=== PATIENT | female | born 1950 | race Caucasian/White ===

== ENCOUNTER 2017-06-16 19:59 | Emergency (ER) | payer MEDICARE, BC ==
--- NOTE | 2017-06-16 20:02 | EDM.PDOC ---
ED HPI GENERAL MEDICAL PROBLEM - General Chief Complaint: General Stated Complaint: LEFT HIP PAIN Time Seen by Provider: 06/16/17 20:02 Source of Information: Reports: Patient, EMS. Denies: Old Records ([facility] chart/EMR) History Limitations: Reports: No Limitations - History of Present Illness INITIAL COMMENTS - FREE TEXT/NARRATIVE: The patient was brought to the emergency room via ambulance with basic transport secondary to severe 7/10 sharp sudden onset left hip pain, which occurred at home at about 19:15 hours today. She was just discharged from [facility] earlier today after a left hip TEP in that facility yesterday. The patient was attempting to walk into the bathroom with her walker when her foot caught in the doorway, and she heard a severe crack, however no history of fall or other significant injury/complaints. The first responders did give her own dose of 5 mg of oxycodone at 19:30 hours on their arrival with patient usually taking Benadryl along with this medication secondary to nonspecific reaction from morphine during recent hospitalization. Her last Benadryl dose was at 16:30 hours this afternoon. Note that the patient was placed on low-dose Xarelto at discharge secondary to her hip surgery despite some postoperative anemia and also her previous history of significant bleeding with surgeries. The patient denies any chest pain/pressure, heart flutter, dizziness, orthostasis, orthopnea, diaphoresis, paresthesias, recent decreased exercise tolerance, or any other anginal-type symptoms. No recent history of abdominal pain, heartburn, nausea, diarrhea, melena, gross hematochezia, or any food intolerance, including fatty foods, etc.. The patient also denies any recent fever, cough, wheezing, dyspnea, etc.. Onset: Today, Sudden Onset Date: 06/16/17 Onset Time: 19:15 Duration: Constant Location: Reports: Lower Extremity, Left. 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: Reports: Other Medication(s) (As above), Other (see below) ( Immobilization) Left Hip Pain Score (Numeric/FACES): 7 - Related Data Allergies Allergy/AdvReac Type Severity Reaction Status Date / Time azithromycin [From Zithromax] Allergy Anaphylactic Verified 06/16/17 20:04 Shock celecoxib [From Celebrex] Allergy Anaphylactic Verified 06/16/17 20:04 Shock morphine Allergy Headache Verified 06/16/17 20:04 Past Medical History Cardiovascular History: Reports: High Cholesterol, Hypertension Gastrointestinal History: Reports: Cholelithiasis [employer]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 Only blood transfusion required with open cholecystectomy in the early - Past Surgical History GI Surgical History: Reports: Cholecystectomy, Other (See Below) Other GI Surgeries/Procedures: open cholecystectomy with significant postoperative bleed requiring transfusion in the early Female Surgical History: Reports: Hysterectomy, Other (See Below) Other Female Surgeries/Procedures: Hysterectomy in the secondary to fibroids Musculoskeletal Surgical History: Reports: Arthroscopic Knee, Hip Replacement, Other (See Below) Other Musculoskeletal Surgeries/Procedures:: Left hip TEP on 06/15/17, right hip TEP on 04/19/16, right knee arthroscopic surgery in May 2017 - Past Imaging History Past Imaging History: Reports: MRI (MRI of the right shoulder on 07/08/16) Social & Family History - Tobacco Use Packs/Tins Daily: 1 (No use since 1972) Used Tobacco, but Quit: Yes Smoking Cessation Information Provided To Patient: No Second Hand Smoke Exposure: No Second Hand Smoke Education Provided: No - Alcohol Use Alcohol Use History: Yes Days Per Week of Alcohol Use: 3 (No previous DWIs, problems with alcohol abuse, etc.) Number of Drinks Per Day: 3 (Usually mixed drinks) Total Drinks Per Week: 9 Alcohol Use Frequency: Socially - Living Situation & Occupation Living situation: Reports: (1970, 3 children), with Family () 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 ED EXAM, GENERAL - Physical Exam Exam: See Below Exam Limited By: No Limitations General Appearance: Alert, WD/WN, Moderate Distress (Secondary to pain) Eye Exam: Bilateral Eye: EOMI, Normal Inspection (No nystagmus), PERRL Ears: Normal External Exam, Normal Canal, Hearing Grossly Normal, Normal TMs Nose: Normal Inspection, Normal Mucosa, No Blood Throat/Mouth: Normal Inspection, Normal Lips, Normal Teeth, Normal Gums, Normal Oropharynx, Normal Voice, No Airway Compromise. No: Dysphagia, Inflammation, Perioral Cyanosis Head: Atraumatic, Normocephalic. No: Facial Swelling, Facial Tenderness, Sinus Tenderness Neck: Normal Inspection, Supple, Non-Tender, Full Range of Motion. No: Carotid Bruit, Lymphadenopathy (L), Lymphadenopathy (R), Thyromegaly Respiratory/Chest: No Respiratory Distress, Lungs Clear, Normal Breath Sounds, No Accessory Muscle Use, Chest Non-Tender. No: Pleural Rub, Retractions Cardiovascular: Normal Peripheral Pulses, Regular Rate, Rhythm, No Edema, No Gallop, No JVD, No Murmur, No Rub. No: Gallop/S3, Gallop/S4, Friction Rub Peripheral Pulses: 4+: Radial (L), Radial (R), Dorsalis Pedis (L), Dorsalis Pedis (R) GI/Abdominal: Normal Bowel Sounds, Soft, Non-Tender, No Organomegaly, No Distention, No Abnormal Bruit, No Mass, Pelvis Stable, Other (Obese) (Female) Exam: Deferred Rectal (Female) Exam: Deferred Back Exam: Normal Inspection, Full Range of Motion. No: CVA Tenderness (L), CVA Tenderness (R), Muscle Spasm Extremities: No Pedal Edema, Normal Capillary Refill, Leg Pain (Severe leg pain with movement with outer rotation and leg shortening), Limited Range of Motion, Other (Postop dressing on left hip TEP site). No: Puja's Sign Neurological: Alert, Oriented, CN II-XII Intact, Normal Cognition, Normal Gait, Normal Reflexes (Negative Babinski's), No Motor/Sensory Deficits Psychiatric: Normal Affect, Normal Mood Skin Exam: Wound/Incision (Postoperative site dressing). No: Diaphoretic, Pallor Lymphatic: No Adenopathy Course - Vital Signs Last Recorded V/S: Last Vital Signs Temp 36.8 C 06/16/17 21:17 Pulse 76 06/16/17 21:47 Resp 20 06/16/17 21:47 BP 111/66 06/16/17 21:47 Pulse Ox 96 06/16/17 21:47 Vital Signs - 24 hr 06/16/17 06/16/17 06/16/17 21:07 21:17 21:18 Temperature [ 36.8 C Oral] Pulse, 78 75 Peripheral [ Pulse Oximetry] Respiratory 20 20 Rate Blood Pressure 132/70 111/54 L [Right Upper Arm] O2 Sat by Pulse 97 92 L Oximetry O2 Sat by Pulse 94 L Oximetry [ Nasal Cannula] 06/16/17 21:47 Temperature [ Oral] Pulse, 76 Peripheral [ Pulse Oximetry] Respiratory 20 Rate Blood Pressure 111/66 [Right Upper Arm] O2 Sat by Pulse 96 Oximetry O2 Sat by Pulse Oximetry [ Nasal Cannula] Note desaturation to 88% on room air prior to administration of O2 - Orders/Labs/Meds Orders: Active Orders 24 hr Category Date Time Status Cardiac Monitoring [RC] . DIRECTED Care 06/16/17 20:50 Active Oxygen Therapy, ED [RC] CONTINUOUS Care 06/16/17 21:07 Active Peripheral IV Care [RC] . DIRECTED Care 06/16/17 20:03 Active Pelvis 1V or 2V [CR] Stat Exams 06/16/17 20:02 Taken Sodium Chloride 0.9% [Saline Flush] Med 06/16/17 20:03 Active 10 ml FLUSH ASDIRECTED PRN Obtain Past Medical Record [OM.PC] Routine Oth 06/16/17 20:02 Active Peripheral IV Insertion Adult [OM.PC] Routine Oth 06/16/17 20:03 Ordered Medication Orders Sodium Chloride (Saline Flush) 10 ml FLUSH ASDIRECTED PRN PRN Reason: Keep Vein Open Last Admin: 06/16/17 20:38 Dose: 10 ml Labs: Laboratory Tests 06/16/17 06/16/17 06/16/17 Range/Units 21:05 21:05 21:05 WBC 12.8 H (4.0-10.2) K/uL RBC 2.99 L (3.77-5.09) M/uL Hgb 9.3 L (11.7-15.5) g/dL Hct 29.1 L (34.0-46.0) % MCV 97.3 (84.0-98.0) fL MCH 31.1 (28.2-33.3) pg MCHC 32.0 (31.7-36.0) g/dL RDW 14.4 H (11.2-14.1) % Plt Count 101 L (150-350) K/uL Neut % (Auto) 70.1 (45.0-80.0) % Lymph % (Auto) 14.3 (10.0-50.0) % Stoddard % (Auto) 13.8 (2.0-14.0) % Eos % (Auto) 1.6 (0.0-5.0) % Baso % (Auto) 0.2 (0.0-2.0) % Neut # (Auto) 8.93 H (1.40-7.00) K/uL Lymph # (Auto) 1.83 (0.50-3.50) K/uL Stoddard # (Auto) 1.76 H (0.00-1.00) K/uL Eos # (Auto) 0.21 (0.00-0.50) K/uL Baso # (Auto) 0.03 (0.00-0.20) K/uL PT (9.8-11.7) SEC INR APTT (23.5-30.0) SEC Sodium 139 (136-145) mmol/L Potassium 3.9 (3.5-5.1) mmol/L Chloride 107 (98-107) mmol/L Carbon Dioxide 26.1 (21.0-32.0) mmol/L BUN 17 (7-18) mg/dL Creatinine 0.81 (0.51-1.17) mg/dL Est Cr Clr Drug Dosing TNP Estimated GFR (MDRD) > 60 mL/min Glucose 125 H (74-106) mg/dL Lactic Acid 2.4 H (0.4-2.0) mmol/L Calcium 9.0 (8.5-10.1) mg/dL Total Bilirubin 0.1 L (0.2-1.0) mg/dL AST 41 H (15-37) U/L ALT 20 (12-78) U/L Alkaline Phosphatase 71 (46-116) IU/L Total Protein 6.4 (6.4-8.2) g/dL Albumin 3.3 L (3.4-5.0) g/dL 06/16/17 Range/Units 21:15 WBC (4.0-10.2) K/uL RBC (3.77-5.09) M/uL Hgb (11.7-15.5) g/dL Hct (34.0-46.0) % MCV (84.0-98.0) fL MCH (28.2-33.3) pg MCHC (31.7-36.0) g/dL RDW (11.2-14.1) % Plt Count (150-350) K/uL Neut % (Auto) (45.0-80.0) % Lymph % (Auto) (10.0-50.0) % Stoddard % (Auto) (2.0-14.0) % Eos % (Auto) (0.0-5.0) % Baso % (Auto) (0.0-2.0) % Neut # (Auto) (1.40-7.00) K/uL Lymph # (Auto) (0.50-3.50) K/uL Stoddard # (Auto) (0.00-1.00) K/uL Eos # (Auto) (0.00-0.50) K/uL Baso # (Auto) (0.00-0.20) K/uL PT 10.3 (9.8-11.7) SEC INR 1.0 APTT 17.2 L (23.5-30.0) SEC Sodium (136-145) mmol/L Potassium (3.5-5.1) mmol/L Chloride (98-107) mmol/L Carbon Dioxide (21.0-32.0) mmol/L BUN (7-18) mg/dL Creatinine (0.51-1.17) mg/dL Est Cr Clr Drug Dosing Estimated GFR (MDRD) mL/min Glucose (74-106) mg/dL Lactic Acid (0.4-2.0) mmol/L Calcium (8.5-10.1) mg/dL Total Bilirubin (0.2-1.0) mg/dL AST (15-37) U/L ALT (12-78) U/L Alkaline Phosphatase (46-116) IU/L Total Protein (6.4-8.2) g/dL Albumin (3.4-5.0) g/dL Meds: Medications Generic Name Dose Route Start Last Admin Trade Name Freq PRN Reason Stop Dose Admin Sodium Chloride 10 ml 06/16/17 20:03 06/16/17 20:38 Saline Flush FLUSH 10 ml ASDIRECTED PRN Administration Keep Vein Open Discontinued Medications Generic Name Dose Route Start Last Admin Trade Name Freq PRN Reason Stop Dose Admin Diazepam 2.5 mg 06/16/17 20:58 06/16/17 21:04 Valium IVPUSH 06/16/17 20:59 2.5 mg ONETIME ONE Administration Diphenhydramine HCl 25 mg 06/16/17 20:24 06/16/17 20:40 Benadryl IVPUSH 06/16/17 20:25 25 mg ONETIME ONE Administration Fentanyl 50 mcg 06/16/17 20:57 06/16/17 21:06 Sublimaze IVPUSH 06/16/17 20:58 50 mcg ONETIME ONE Administration Hydromorphone HCl 1 mg 06/16/17 20:03 06/16/17 20:15 Dilaudid IVPUSH 06/16/17 20:04 1 mg ONETIME ONE Administration Ondansetron HCl 4 mg 06/16/17 20:03 06/16/17 20:15 Zofran IVPUSH 06/16/17 20:04 4 mg ONETIME ONE Administration - Radiology Interpretation Free Text/Narrative:: X-rays of the pelvis, one view, shows evidence is status post bilateral hip TEP with evidence of new postoperative post hip TEP displaced fracture at the major trochanter, which is new from the postoperative films, which were requested from [facility]. alarm security or surveillance monitor shows normal sinus rhythm in the 70s with no ectopy or arrhythmia Departure - Departure Time of Disposition: 21:50 Disposition: DC/Tfer to Acute Hospital 02 Clinical Impression: Closed left hip fracture, Anemia, Osteoarthritis, Hypertension, Mixed anxiety depressive disorder, Hypoalbuminemia, LFT elevation, Leukocytosis, Lactic acid blood increased - Discharge Information Referrals: Aide Jenkins PA-C [Primary Care Provider] - Forms: ED Department Discharge, Interfacility Transfer EMTALA - Problem List & Annotations (1) Closed left hip fracture SNOMED Code(s): 508085341 Code(s): S72.002A - FRACTURE OF UNSP PART OF NECK OF LEFT FEMUR, INIT Status: Acute Priority: High Current Visit: Yes Onset Date: 06/16/17 Annotation/Comment:: Postoperative major trochanteric fracture as above. Telephone consultation at 20:[address] Santiago, orthopedic surgeon at [facility], who did review today's x-rays and agrees with my above findings. He does agree to accept physician for direct admission under hospitalist care with no further treatment recommendations given. Subsequent telephone consultation at 20:[address] Diggs, hospitalist at [facility], who does accept the patient for direct admission. Aggressive IV pain management as above with overall good results. IV Benadryl given secondary to previous nonspecific reaction in the past as above with no allergic reaction to today's medications. Ambulance transfer with health care consultant accompaniment. Note some mild hypoxia secondary to IV pain medications as above with good oxygenation after application of O2 2 L/m by nasal cannula. Qualifiers: Encounter type: initial encounter Qualified Code(s): S72.002A - Fracture of unspecified part of neck of left femur, initial encounter for closed fracture (2) Anemia SNOMED Code(s): 341331960 Code(s): D64.9 - ANEMIA, UNSPECIFIED Status: Acute Priority: High Current Visit: Yes Onset Date: ~06/16/17 Annotation/Comment:: Note current preoperative anemia and mild thrombocytopenia with history of severe postoperative bleeding in the past as above. Patient currently on Xarelto postoperatively as above. Continue to observe closely by accepting providers. Qualifiers: Anemia type: other cause Other causes of anemia: other cause, not classified Qualified Code(s): D64.89 - Other specified anemias (3) Hypertension SNOMED Code(s): 49995074 Code(s): I10 - ESSENTIAL (PRIMARY) HYPERTENSION Status: Chronic Priority : Medium Current Visit: Yes Annotation/Comment:: Blood pressures under good control in the emergency room despite pain Qualifiers: Hypertension type: essential hypertension Qualified Code(s): I10 - Essential (primary) hypertension (4) Hypoalbuminemia SNOMED Code(s): 260210732 Code(s): E88.09 - OTH DISORDERS OF PLASMA-PROTEIN METABOLISM, NEC Status: Acute Priority: Medium Current Visit: Yes Onset Date: 06/16/17 Annotation/Comment:: Mild hypoalbuminemia. Consider high-protein Glucerna supplements snacks (5) LFT elevation SNOMED Code(s): 675261056 Code(s): R79.89 - OTHER SPECIFIED ABNORMAL FINDINGS OF BLOOD CHEMISTRY Status: Chronic Priority: Medium Current Visit: Yes Annotation/Comment:: Mild LFTs elevation possibly postoperative. Observe for now (6) Leukocytosis SNOMED Code(s): 898079419, 668093164 Code(s): D72.829 - ELEVATED WHITE BLOOD CELL COUNT, UNSPECIFIED Status: Acute Priority: Medium Current Visit: Yes Onset Date: 06/16/17 Annotation/Comment:: Mild postoperative leukocytosis with no direct evidence of infection. No fever, etc. Observe for now Qualifiers: Leukocytosis type: bandemia Qualified Code(s): D72.825 - Bandemia (7) Mixed anxiety depressive disorder SNOMED Code(s): 061799817 Code(s): F41.8 - OTHER SPECIFIED ANXIETY DISORDERS Status: Chronic Priority: Medium Current Visit: Yes Annotation/Comment:: Stable by history (8) Osteoarthritis SNOMED Code(s): 805151221 Code(s): M19.90 - UNSPECIFIED OSTEOARTHRITIS, UNSPECIFIED SITE Status: Chronic Priority: Medium Current Visit: Yes Annotation/Comment:: Otherwise stable by history Qualifiers: Osteoarthritis location: multiple joints Osteoarthritis type: primary Qualified Code(s): M15.0 - Primary generalized (osteo)arthritis (9) Lactic acid blood increased SNOMED Code(s): 9998994 Code(s): R79.89 - OTHER SPECIFIED ABNORMAL FINDINGS OF BLOOD CHEMISTRY Status: Acute Priority: High Current Visit: Yes Onset Date: 06/16/17 Annotation/Comment:: Mild lactic acid elevation with no clinical evidence of sepsis. Consider repeat lactic acid level in 6 hours - Problem List Review Problem List Initiated/Reviewed/Updated: Yes - My Orders Last 24 Hours: My Active Orders 06/16/17 20:02 Pelvis 1V or 2V [CR] Stat Obtain Past Medical Record [OM.PC] Routine 06/16/17 20:03 Peripheral IV Care [RC] . DIRECTED Sodium Chloride 0.9% [Saline Flush] 10 ml FLUSH ASDIRECTED PRN Peripheral IV Insertion Adult [OM.PC] Routine 06/16/17 20:50 Cardiac Monitoring [RC] . DIRECTED 06/16/17 21:07 Oxygen Therapy, ED [RC] CONTINUOUS - Assessment/Plan Last 24 Hours: My Active Orders 06/16/17 20:02 Pelvis 1V or 2V [CR] Stat Obtain Past Medical Record [OM.PC] Routine 06/16/17 20:03 Peripheral IV Care [RC] . DIRECTED Sodium Chloride 0.9% [Saline Flush] 10 ml FLUSH ASDIRECTED PRN Peripheral IV Insertion Adult [OM.PC] Routine 06/16/17 20:50 Cardiac Monitoring [RC] . DIRECTED 06/16/17 21:07 Oxygen Therapy, ED [RC] CONTINUOUS Assessment:: As above Plan: As above. Extensive precautions were given to the patient and her , who are in agreement with the treatment plan. Ambulance transfer to [place] with health care consultant accompaniment Note secondary to taking care of the patient the nurse did not have time to enter her medications into the medication list with medications sent with the patient in the ambulance
[2017-06-16] MEDS ORDERED: Sodium Chloride 0.9% 10 ML Syringe FLUSH PRN (20:03)
[2017-06-16] MEDS ORDERED: Ondansetron 4 MG/2 ML SDV IVPUSH ONE (20:03)
[2017-06-16] MEDS ORDERED: HYDROmorphone 1 MG/ML Syringe IVPUSH ONE (20:03)
[2017-06-16] MEDS ORDERED: diphenhydrAMINE 50 MG/ML SDV IVPUSH ONE (20:24)
[2017-06-16] MEDS ORDERED: fentaNYL 100 MCG/2 ML SDV IVPUSH ONE (20:57)
[2017-06-16 21:19] LABS: CHLORIDE,CL 107 mmol/L (98-107); SODIUM,NA 139 mmol/L (136-145)
[2017-06-16 21:49] VITALS: BP 111/66
== END 2017-06-16 21:55 ==
LOC: LL.ED 19:59
DX: M97.02XA Periprosthetic fracture around internal prosthetic left hip joint, initial encounter (principal); D64.9 Anemia, unspecified; M19.90 Unspecified osteoarthritis, unspecified site; I10 Essential (primary) hypertension; F41.8 Other specified anxiety disorders; E88.09 Other disorders of plasma-protein metabolism, not elsewhere classified; R79.89 Other specified abnormal findings of blood chemistry; D72.829 Elevated white blood cell count, unspecified; E87.2 Acidosis; E78.00 Pure hypercholesterolemia, unspecified; Z90.49 Acquired absence of other specified parts of digestive tract; Z90.710 Acquired absence of both cervix and uterus; Z96.649 Presence of unspecified artificial hip joint; Z98.890 Other specified postprocedural states; Z88.1 Allergy status to other antibiotic agents; Z88.5 Allergy status to narcotic agent; Z88.8 Allergy status to other drugs, medicaments and biological substances; W18.40XA Slipping, tripping and stumbling without falling, unspecified, initial encounter
CPT/HCPCS: 36415; 72170; 80053; 83605; 85025; 85610; 85730; 96374; 96375; 99285; J1170; J1200; J2405; J3010; J3360; J7050

== ENCOUNTER 2017-06-27 10:09 | Inpatient (IN) | payer MEDICARE, BC ==
[2017-06-27] MEDS ORDERED: EXCEDRIN MIGRAINE PO PRN (16:12)
[2017-06-27] MEDS ORDERED: Cetirizine 10 MG Tab PO PRN (16:12)
[2017-06-27] MEDS: traMADol 50 MG Tab PO PRN (18:00)
[2017-06-27] MEDS: Calcium Carbonate/Vitamin D3 1500 MG-400 Units Tab PO SCH (18:04)
[2017-06-27] MEDS: Ferrous Sulfate 325 MG Tab PO SCH (18:04)
--- NOTE | 2017-06-27 19:38 | PCM.HP ---
H&P History of Present Illness - General Date of Service: 06/27/17 Admit Problem/Dx: Admission Diagnosis/Problem Admission Diagnosis/Problem Hip fracture requiring operative repair Source of Information: Patient, Family (), Old Records ([facility] EMR. No paper hospital chart available.), Other (Limited transfer records from [facility]) History Limitations: Reports: No Limitations - History of Present Illness Initial Comments - Free Text/Narative: The patient was brought to our facility via private automobile by her for direct admission into our swing bed for further strengthening, physical therapy, occupational therapy, etc. after recent status post revision of her left hip arthroplasty on 06/22/17 with recent postoperative fracture on 06/16/17 of her left hip TEP secondary to a fall in the home. The patient was evaluated in our emergency room by me on that day with transfer to [facility] for further orthopedic consultation, treatment, etc. She did have some complications of a postoperative bleed after the surgery with 2 units of packed red blood cells apparently required by her history. The patient denies any chest pain/pressure, heart flutter, dizziness, orthostasis, orthopnea, diaphoresis, paresthesias, recent decreased exercise tolerance, or any other anginal-type symptoms. No recent history of abdominal pain, heartburn, nausea, diarrhea, melena, gross hematochezia, or any food intolerance, including fatty foods, etc.. The patient also denies any recent fever, cough, wheezing, dyspnea , etc.. No other complications during the above hospitalization, although the patient is still having about 8/10 left hip pain despite significant narcotic therapy at this time. Onset of Symptoms: Reports: Sudden Symptom Onset Date: 06/16/17 Symptom Onset Time: 19:50 Duration of Symptoms: Reports: Intermittent, Improving (Since surgery) Location: Reports: Lower Extremity, Left (Left hip pain as above with additional occasional left knee pain with negative x-rays at [facility]). Denies: Head, Face, Neck, Chest, Abdomen, Back, Pelvis, Upper Extremity, Left, Upper Extremity, Right, Lower Extremity, Right, Radiates to Quality: Reports: Same as Previous Episode, Sharp, Stabbing, Throbbing Severity: Moderate Improves with: Reports: Rest Worsens with: Reports: Movement Context: Reports: Other (As above) Associated Symptoms: Reports: Weakness (Mild generalized). Denies: Confusion, Chest Pain, Cough, Diaphoresis, Fever/Chills, Headaches, Loss of Appetite, Malaise, Nausea/Vomiting, Shortness of Breath, Syncope Left Anterior Hip Pain Score (Numeric/FACES): 8 - Related Data Allergies/Adverse Reactions: Allergies Allergy/AdvReac Type Severity Reaction Status Date / Time apixaban [From Eliquis] Allergy Numbness Verified 06/27/17 15:16 azithromycin [From Zithromax] Allergy Swollen Verified 06/27/17 15:16 Eyes celecoxib [From Celebrex] Allergy Swollen Verified 06/27/17 15:16 Eyes morphine Allergy Headache Verified 06/27/17 15:16 oxycodone Allergy Itching Verified 06/27/17 15:16 metals Allergy Rash Uncoded 06/27/17 15:16 Home Medications: Home Meds Acetaminophen [Tylenol Arthritis] 650 mg PO Q8HR PRN 06/27/17 [History] Calcium Carbonate/Vitamin D3 [Calcium 500 + Vit D 400] 1 tab PO BID 06/27/17 [ History] Cetirizine HCl [Zyrtec] 10 mg PO DAILY PRN 06/27/17 [History] FLUoxetine [PROzac] 40 mg PO DAILY 06/27/17 [History] Ferrous Gluconate 324 mg PO BID 06/27/17 [History] Lactulose 30 ml PO BEDTIME 06/27/17 [History] Non-Formulary Medication [NF Drug] 3 tab PO BID PRN 06/27/17 [History] Nystatin 15 gm TP BID 06/27/17 [History] Omeprazole 20 mg PO DAILY 06/27/17 [History] Rivaroxaban [Xarelto] 10 mg PO DAILY 06/27/17 [History] Rosuvastatin Calcium 5 mg PO DAILY 06/27/17 [History] Sennosides/Docusate Sodium [Senna-S] 2 tab PO BID PRN 06/27/17 [History] Ubidecarenone [Co Q-10] 100 mg PO DAILY 06/27/17 [History] Zinc Sulfate 220 mg PO DAILY 06/27/17 [History] fentaNYL [Duragesic] 12 mcg TRDERM Q72H 06/27/17 [History] hydrOXYzine Pamoate [Hydroxyzine Pamoate] 50 mg PO Q6HR PRN 06/27/17 [History] oxyCODONE 5 mg PO Q4H PRN 06/27/17 [History] traMADol [Ultram] 100 tab PO Q6HR PRN 06/27/17 [History] Past Medical History HEENT History: Reports: Allergic Rhinitis. Denies: Cataract, Glaucoma, Hard of Hearing, Impaired Vision, Macular Degeneration, Retinal Detachment Cardiovascular History: Reports: High Cholesterol, Hypertension. Denies: Afib, Aneurysm, Arrhythmia, Blood Clots/VTE/DVT, CAD, Heart Murmur, NJ, Pacemaker, PVD , Syncope Respiratory History: Reports: None, Intubation, Previous. Denies: Asthma, Bronchitis, Recurrent, COPD, Intubation, Difficult, PE, Pneumothorax, Pulmonary Fibrosis, Sleep Apnea, TB Gastrointestinal History: Reports: Cholelithiasis, Chronic Constipation (With narcotic medications otherwise nonproblematic). Denies: Bowel Obstruction, Celiac Disease, Colon Polyp, Diverticulosis, Fecal Incontinence, Gastritis, GERD , GI Bleed, Hiatal Hernia, Inflammatory Bowel Disease, Irritable Bowel Syndrome , Jaundice, PUD Genitourinary History: Reports: None. Denies: Acute Renal Failure, Chronic Renal Insuffiency, Renal Calculus, Retention, Urinary, STD, Urinary Incontinence , UTI, Recurrent [employer] History: Reports: Dysfunctional Uterine Bleeding, Fibroids, . Denies: Endometriosis : 3 Para: 2 (All 3 deliveries full-term with initial with subsequent C- sections 2, no other complications during her pregnancies or deliveries ) LMP (Approximate): Menopausal (Surgical menopause as below) Musculoskeletal History: Reports: Arthritis, Back Pain, Chronic, Fracture, Fibromyalgia, Osteoarthritis, Other (See Below). Denies: Amputation, Gout, RA, SLE Other Musculoskeletal History: Postoperative left proximal femur fracture on 06/16 Neurological History: Reports: Migraines. Denies: Alzheimers Disease, Cerebral Aneurysms, Concussion, CVA, Head Trauma, MS, Neuropathy, Peripheral, Parkinson's , Seizure, TIA Psychiatric History: Reports: Anxiety, Depression. Denies: Abuse, Victim of, ADD, ADHD, Addiction, Dementia, Psych Hospitalization(s), Psychosis, PTSD, Suicide Attempt, Suicidal Ideation Endocrine/Metabolic History: Reports: None. Denies: Diabetes, Type I, Diabetes , Type II, Hypothyroidism, IDDM Hematologic History: Reports: Anemia, Blood Transfusion(s), Iron Deficiency, Other (See Below) Other Hematologic History: History of significant postoperative bleeding of unknown etiology from all of her surgeries with 2 units of packed red blood cells required after left hip revision on 06/22/17 with additional transfusion required after her open cholecystectomy in the early 1999s, no apparent previous workup Immunologic History: Reports: None. Denies: AIDS, HIV, SLE Oncologic (Cancer) History: Reports: None. Denies: Basal Cell Carcinoma, Breast , Cervix, Hodgkin's Lymphoma, Leukemia, Lymphoma, Malignant Melanoma, Non- Hodgkin's Lymphoma, Ovarian, Squamous Cell Carcinoma, Uterine Dermatologic History: Reports: Eczema. Denies: Psoriasis - Infectious Disease History Infectious Disease History: Reports: Chicken Pox. Denies: C-Difficile, Measles , Meningitis, Mononucleosis, MRSA, Mumps, Pertussis (Whooping Cough), Rheumatic Fever, Rubella, Scarlet Fever, Shingles, TB, VRE - Past Surgical History Head Surgeries/Procedures: Reports: None HEENT Surgical History: Reports: Oral Surgery, Other (See Below). Denies: Adenoidectomy, Cataract Surgery, Eye Surgery, Laser Surgery, LASIK, Myringotomy w Tube(s), Naso-Sinus Surgery, Tonsillectomy Other HEENT Surgeries/Procedures: Multiple teeth extractions with complete upper dentures and multiple anterior lower implants Cardiovascular Surgical History: Reports: None. Denies: Pacer, Varicose Respiratory Surgical History: Reports: None. Denies: Thoracentesis GI Surgical History: Reports: Cholecystectomy, Colonoscopy, Other (See Below). Denies: Appendectomy, EGD, Hernia, Abdominal, Hernia, Inguinal, Hernia Repair/ Other, Polypectomy Other GI Surgeries/Procedures: Open cholecystectomy in the early 1999, last colonoscopy on 05/23/11 Female Surgical History: Reports: Section, Hysterectomy, Salpingo- Oophorectomy, Tubal Ligation, Other (See Below). Denies: D&C Other Female Surgeries/Procedures: C-sections 2 as above, bilateral tubal ligation in 1969, hysterectomy with one-sided salpingo-oophorectomy in the secondary to uterine fibroids and dysfunctional uterine bleeding Endocrine Surgical History: Reports: None. Denies: Thyroid Biopsy Neurological Surgical History: Reports: None. Denies: C-Spine, Discectomy, Laminectomy, Lumbar Spine, Spinal Fusion, Vertebroplasty Musculoskeletal Surgical History: Reports: Arthroscopic Knee, Hip Replacement, Other (See Below). Denies: Carpal Tunnel, Ganglion Cyst, Shoulder Surgery Other Musculoskeletal Surgeries/Procedures:: Left hip TEP on 06/15/17 with subsequent postoperative fracture and required revision of her arthroplasty including wire securing on 06/22/17, right hip On 04/15/17, right foot hammertoe arthrodesis and bunionectomy on 06/11/14, right-sided bunionectomy on 04/09/14, left foot digit #2 and 3 hammertoe surgery with additional hardware removal on , right arthroscopic knee surgery in May 2017, left knee arthroscopic medial meniscectomy and chondroplasty on 04/07/17 Oncologic Surgical History: Reports: None Dermatological Surgical History: Reports: None - Past Imaging History Past Imaging History: Reports: MRI (Right shoulder on 07/08/16) Social & Family History - Family History HEENT: Reports: None. Denies: Allergic Rhinitis, Glaucoma, Macular Degeneration Cardiac: Reports: CAD, Heart Failure, NJ, Stent, Other (See Below). Denies: Afib, Aneurysm, Arrhythmia, Blood Clots/VTE/DVT, Cardiomyopathy, Heart Murmur, High Cholesterol, Hypertension, Pacemaker, Syncope Other Cardiac Family History: Father with fatal NJ with possible additional CHF in his 80s with previous PTCA and stent 2 in his 70s Respiratory: Reports: None. Denies: Asthma, COPD, PE, Pneumothorax, Sleep Apnea GI: Reports: None. Denies: Celiac Disease, Cholelithiasis, Colon Polyps, GERD, GI bleed, Inflammatory Bowel Disease, Irritable Bowel Syndrome, PUD : Reports: None. Denies: Dialysis, Renal Calculus, Renal Disease/ Insufficiency OBGYN: Reports: None. Denies: Dysfunctional uterine bleeding, Endometriosis, Recurrent Spontaneous Musculoskeletal: Reports: None. Denies: Gout, RA, SLE Neurological: Reports: CVA, MS, Other (See Below). Denies: Alzheimers Disease, Cerebral Aneurysms, Dementia, Migraines, Parkinson's, Seizure, TIA Other Neurological Family History: mother, maternal maternal aunt 1 and maternal uncles 2 all with MS; maternal grandmother with fatal CVA in her 60s with paternal grandmother with fatal CVA in her early 50s Psychiatric: Reports: None. Denies: Abuse, Victim of, ADD, ADHD, Anxiety, Depression, Psych Hospitalization(s), PTSD, Suicide Attempt, Other (See Below) Endocrine/Metabolic: Reports: Diabetes, type II, IDDM, Other (See Below). Denies: Hypothyroidism Other Endocrine/Metabolic Family History: Father and maternal grandmother with IDDM Hematologic: Reports: None. Denies: Anemia, SLE Immunologic: Reports: None. Denies: AIDS, HIV, SLE Dermatologic: Reports: Eczema, Other (See Below) Other Dermatologic Family History: Father with eczema Oncologic: Reports: Lung, Metastatic, Other (See Below). Denies: Breast, Cervix , Colon, Hodgkin's Lymphoma, Leukemia, Non-Hodgkin's Lymphoma, Ovarian, Prostate , Skin, Uterine Other Oncologic Family History: Father with metastatic lung cancer with history of tobacco use - Tobacco Use Smoking Status *Q: Former Smoker Tobacco Use Within Last Twelve Months: No Years of Tobacco use: 17 Packs/Tins Daily: 3 (Ordered smoking at age 17 and quit at age 35) Used Tobacco, but Quit: Yes Month Tobacco Last Used: Last use on 11/14/74 Smoking Cessation Information Provided To Patient: No Second Hand Smoke Exposure: No Second Hand Smoke Education Provided: No - Caffeine Use Caffeine Use: Reports: Soda (2 sodas per week). Denies: Coffee, Energy Drinks, Tea - Alcohol Use Alcohol Use History: Yes Days Per Week of Alcohol Use: 3 (No previous DWIs, problems with alcohol abuse, etc.) Number of Drinks Per Day: 3 (Usually mixed drinks or beer) Total Drinks Per Week: 9 Alcohol Use in Last Twelve Months: Yes Alcohol Use Frequency: Socially - Recreational Drug Use Recreational Drug Use: No Drug Use in Last 12 Months: No Recreational Drug Type: Denies: Amphetamines (Speed), Benzodiazepines, Cocaine, Heroin, Inhalants (Glues, Solvents, Aerosols), LSD (Acid), Marijuana/Hashish, Methamphetamine - Living Situation & Occupation Living situation: Reports: ( in 1970 with 3 children), with Family () 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 Denies: Fever, Chills, Malaise, Weakness, Fatigue, Night Sweats, Diaphoresis, Decreased Appetite, Weight Loss, Weight Gain HEENT: Reports: No Symptoms. Denies: Ear Pain, Eye Pain, Headaches, Hearing Changes, Rhinitis, Sinus Congestion, Vertigo, Visual Changes Pulmonary: Reports: No Symptoms. Denies: Shortness of Breath, Wheezing, Pleuritic Chest Pain, Cough Cardiovascular: Reports: No Symptoms. Denies: Chest Pain, Palpitations, Dyspnea on Exertion, Orthopnea, Edema, Lightheadedness, Syncope, Claudication, Blood Pressure Problem Gastrointestinal: Reports: No Symptoms. Denies: Abdominal Pain, Anorexia, Black Stool, Bloody Stool, Constipation, Diarrhea, Decreased Appetite, Difficulty Swallowing, Distension, Flatus, Hematemesis, Hematochezia, Melena, Mucous in Stool, Nausea, Stool Incontinence, Vomiting Genitourinary: Reports: No Symptoms. Denies: Dysuria, Frequency, Burning, Pain , Urgency, Incontinence, Hematuria, Retention, Discharge, Flank Pain Musculoskeletal: Reports: Leg Pain (Left hip and knee as above), Joint Pain (As above). Denies: Neck Pain, Shoulder Pain, Arm Pain, Back Pain Skin: Reports: Bruising (Postoperative site of the left hip), Pruritis (With administration of oxycodone), Wound (As above). Denies: Diaphoresis, Rash, Erythema Psychiatric: Reports: Depression, Anxiety (Increased since repeat left hip surgery). Denies: Confusion, Agitation, Hallucinations, Suicidal Ideation, Homicidal Ideation, Hallucinations (Auditory), Hallucinations (Visual) Neurological: Reports: No Symptoms, Difficulty Walking (Secondary to recent hip surgery), Weakness (Generalized postoperative). Denies: Confusion, Dizziness, Numbness, Paresthesia, Seizure, Syncope, Tingling, Gait Disturbance Hematologic/Lymphatic: Reports: No Symptoms Immunologic: Reports: No Symptoms Exam - Exam Exam: See Below - Vital Signs Vital Signs: Last Vital Signs Temp 37.4 C 06/27/17 19:26 Pulse 89 06/27/17 19:26 Resp 16 06/27/17 19:26 BP 137/63 06/27/17 19:26 Pulse Ox 91 L 06/27/17 19:26 Weight: 80.601 kg - Exam Quality Assessment: DVT Prophylaxis. No: Supplemental Oxygen, Central Line/PICC , Urinary Catheter, Skin Breakdown, Restraints General: Alert, Oriented, Cooperative HEENT: Conjunctiva Clear, EACs Clear, EOMI, Hearing Intact, Mucosa Moist & [place] , Nares Patent, Normal Nasal Septum, Posterior Pharynx Clear, Pupils Equal, Pupils Reactive, TMs Clear, PERRLA Neck: Supple, Trachea Midline, +2 Carotid Pulse wo Bruit, Full Range of Motion. No: Lymphadenopathy, Carotid Bruit, JVD, Thyromegaly Lungs: Clear to Auscultation, Normal Respiratory Effort. No: Rub Cardiovascular: Regular Rate, Regular Rhythm, Normal S1, Normal S2. No: Systolic Murmur, Diastolic Murmur, Rubs, Gallop/S3, Gallop/S4 GI/Abdominal Exam: Normal Bowel Sounds, Soft, Non-Tender, No Organomegaly, No Distention, No Abnormal Bruit, No Mass, Pelvis Stable, Other (Obese) (Female) Exam: Deferred Rectal (Female) Exam: Deferred Back Exam: Normal Inspection, Full Range of Motion. No: CVA Tenderness (L), CVA Tenderness (R) Extremities: No Pedal Edema, Normal Capillary Refill, Limited Range of Motion ( Left hip secondary to recent surgery), Other (Left hip dressing with mild blister formation by nurse's history). No: Puja's Sign Peripheral Pulses: 2+: Radial (L), Radial (R), Dorsalis Pedis (L), Dorsalis Pedis (R) Skin: Warm, Dry, Wound (Postoperative site as above), Incision (As above) Neurological: Cranial Nerves Intact. No: Babinski Neuro Extensive - Mental Status: Alert, Oriented x3, Normal Cognition Psychiatric: Alert, Anxious (Moderate), Depressed (Mild with adequate eye contact). No: Agitated - Patient Data Result Diagrams: 06/28/17 07:15 06/28/17 07:15 Jonatan Results Last 24 hrs: Microbiology 06/28/17 09:40 Stool / Feces - Stool, Liquid Stool Occult Blood (JONATAN) - Final Negative Hemoccult Imaging Impressions Last 24 hrs: X-rays of the pelvis on one view, with additional one view of the proximal femur shows status post bilateral hip TEP including left hip recent wiring with stable previous proximal femur fracture *Q Meaningful Use (ADM) - VTE *Q VTE Criteria *Q: - Stroke *Q Stroke Criteria *Q: - AMI *Q AMI Criteria *Q: - Problem List (1) Fracture, proximal femur SNOMED Code(s): 715861579 ICD Code: S72.009A - FRACTURE OF UNSP PART OF NECK OF UNSP FEMUR, INIT Status: Acute Priority: High Current Visit: Yes Onset Date: 06/16/17 Problem Details: Recent postoperative proximal left femur fracture on 06/16 with required revision of her left hip on 06/22/17. Initiate physical therapy and occupational therapy with follow-up already scheduled at the orthopedic clinic at [facility] in [place]. Activity restrictions as per physical therapy and occupational therapy. Strict fall precautions. They recommended dressing changes only on a weekly basis. Note significant narcotic pain therapy at this time with patient to be changed from scheduled to when necessary oxycodone with extreme discretion with attempt to discontinue this medication and low-dose fentanyl patch GREG. Regularly scheduled Tylenol regimen to be initiated with additional Ultram therapy for breakthrough pain. Patient aware of my concerns of addiction from the above medications and is in agreement with this treatment plan Qualifiers: Encounter type: initial encounter Fracture type: closed Laterality: left Qualified Code(s): S72.002A - Fracture of unspecified part of neck of left femur, initial encounter for closed fracture (2) Osteoarthritis SNOMED Code(s): 922838025 ICD Code: M19.90 - UNSPECIFIED OSTEOARTHRITIS, UNSPECIFIED SITE Status: Chronic Priority: Medium Current Visit: Yes Problem Details: Other than recent left femur fracture and occasional left knee pain stable by history. Note negative recent left knee x-rays at [facility] prior to transfer to this facility. Qualifiers: Osteoarthritis location: multiple joints Osteoarthritis type: primary Qualified Code(s): M15.0 - Primary generalized (osteo)arthritis (3) Hypertension SNOMED Code(s): 04458882 ICD Code: I10 - ESSENTIAL (PRIMARY) HYPERTENSION Status: Chronic Priority : Medium Current Visit: Yes Problem Details: Stable by history. Continue to observe closely Qualifiers: Hypertension type: essential hypertension Qualified Code(s): I10 - Essential (primary) hypertension (4) Hyperlipidemia SNOMED Code(s): 18407065 ICD Code: E78.5 - HYPERLIPIDEMIA, UNSPECIFIED Status: Chronic Priority: Medium Current Visit: Yes Problem Details: Currently under therapy with repeat lipid panel by her regular provider after discharge Qualifiers: Hyperlipidemia type: unspecified Qualified Code(s): E78.5 - Hyperlipidemia , unspecified (5) Anemia SNOMED Code(s): 500883787 ICD Code: D64.9 - ANEMIA, UNSPECIFIED Status: Acute Priority: High Current Visit: Yes Onset Date: ~06/22/17 Problem Details: Postoperative anemia with repeat blood work in one week. Note recent requirement for blood transfusion. In addition, note significant history of frequent postoperative bleeding as above with no previous workup. Secondary to recent blood transfusion cannot perform workup at this time. Consider possible factor V, factor VII, etc. evaluations in about one month with additional iron studies at that time Qualifiers: Anemia type: iron deficiency Iron deficiency anemia type: other iron deficiency Qualified Code(s): D50.8 - Other iron deficiency anemias (6) Allergic rhinitis SNOMED Code(s): 74645230 ICD Code: J30.9 - ALLERGIC RHINITIS, UNSPECIFIED Status: Chronic Priority : Medium Current Visit: Yes Problem Details: Stable by history Qualifiers: Chronicity: chronic Allergic rhinitis trigger: pollen Allergic rhinitis seasonality: seasonal Qualified Code(s): J30.1 - Allergic rhinitis due to pollen (7) Mixed anxiety depressive disorder SNOMED Code(s): 992233909 ICD Code: F41.8 - OTHER SPECIFIED ANXIETY DISORDERS Status: Chronic Priority: Medium Current Visit: Yes Problem Details: Somewhat exacerbated with recent fracture, etc. Initiate low-dose Ativan, which should be also beneficial for patients pain control. Continue Prozac for now Problem List Initiated/Reviewed/Updated: Yes Orders Last 24hrs: Active Orders 24 hr Category Date Time Status Admission Status [Patient Status] [ADT] Routine ADT 06/27/17 12:30 Active Antiembolic Devices [RC] .Routine Care 06/27/17 15:59 Active Antiembolic Devices [RC] PER UNIT ROUTINE Care 06/27/17 15:59 Active Communication Order [RC] ROUTINE Care 06/27/17 16:15 Active Pulse Oximetry [RC] ASDIRECTED Care 06/27/17 15:55 Active Up With Assistance [RC] ASDIRECTED Care 06/27/17 15:57 Active VTE/DVT Education [RC] PER UNIT ROUTINE Care 06/27/17 15:59 Active Vaccines to be Administered [RC] PER UNIT ROUTINE Care 06/27/17 15:59 Active Vital Signs [RC] QSHIFT Care 06/27/17 15:57 Active OT Evaluation and Treatment [CONS] Routine Cons 06/27/17 15:56 Active PT Evaluation and Treatment [CONS] Routine Cons 06/27/17 15:55 Active Heart Healthy Diet [DIET] Diet 06/27/17 Lunch Active Pelvis 1V or 2V [CR] Routine Exams 06/28/17 05:11 Ordered CBC WITH AUTO DIFF [HEME] Routine Lab 06/28/17 05:11 Ordered COMPREHENSIVE METABOLIC PN,CMP [CHEM] Routine Lab 06/28/17 05:11 Ordered OCCULT BLOOD DIAGNOSTIC [OP] Stat Lab 06/27/17 15:54 Uncollected Calcium Carbonate/Vitamin D3 [Caltrate 600+D 1500 MG- Med 06/27/17 18:00 Active 400 Units] 1 tab PO BID Cetirizine [ZyrTEC] Med 06/27/17 16:12 Active 10 mg PO DAILY PRN Docusate Sodium/Sennosides [Senna Plus] Med 06/27/17 16:12 Active 2 tab PO BID PRN FLUoxetine [PROzac] Med 06/28/17 08:00 Active 40 mg PO DAILY Ferrous Sulfate Med 06/27/17 18:00 Active 325 mg PO BID Lactulose [Cephulac] Med 06/27/17 20:00 Active 20 gm PO BEDTIME Non-Formulary Medication [NF Drug] Med 06/27/17 16:12 Pending DOSE each PO BID PRN Omeprazole Med 06/28/17 08:00 Active 20 mg PO DAILY Rivaroxaban [Xarelto] Med 06/27/17 20:00 Active 10 mg PO BEDTIME Rosuvastatin [Crestor] Med 06/28/17 08:00 Active 5 mg PO DAILY Ubidecarenone [Coenzyme Q10] Med 06/28/17 08:00 Active 100 mg PO DAILY Zinc Gluconate [Zinc] Med 06/28/17 08:00 Active 200 mg PO DAILY fentaNYL [Duragesic] Med 06/29/17 08:00 Active 12 mcg TRDERM Q72H hydrOXYzine Pamoate [Vistaril] Med 06/27/17 16:12 Active 50 mg PO Q6HR PRN oxyCODONE Med 06/27/17 20:00 Active 5 mg PO Q4H traMADol [Ultram] Med 06/27/17 16:12 Active 100 mg PO Q6HR PRN Anti-Embolism Stockings AK [Antiembolic Hose] [OM.PC] Oth 06/27/17 15:53 Ordered Routine DVT/VTE Prophylaxis Reflex [OM.PC] Routine Oth 06/27/17 15:53 Ordered GM Immunization Reflex [OM.PC] Click To Edit Oth 06/27/17 15:54 Ordered Obtain Past Medical Record [OM.PC] Routine Oth 06/27/17 15:54 Active Resuscitation Status Routine Resus Stat 06/27/17 15:52 Ordered Medication Orders Calcium Carbonate (Caltrate 600+D 1500 Mg-400 Units) 1 tab PO BID [facility] Last Admin: 06/27/17 18:04 Dose: 1 tab Cetirizine HCl (Zyrtec) 10 mg PO DAILY PRN PRN Reason: Allergies Coenzyme Q10 (Coenzyme Q10) 100 mg PO DAILY [facility] Fentanyl (Duragesic) 12 mcg TRDERM Q72H [facility] Ferrous Sulfate (Ferrous Sulfate) 325 mg PO BID [facility] Last Admin: 06/27/17 18:04 Dose: 325 mg Fluoxetine HCl (Prozac) 40 mg PO DAILY [facility] [facility] Hydroxyzine Pamoate (Vistaril) 50 mg PO Q6HR PRN PRN Reason: Itching Lactulose (Cephulac) 20 gm PO BEDTIME [facility] Non-Formulary Medication (Nf Drug) each PO BID PRN PRN Reason: Headache Omeprazole (Omeprazole) 20 mg PO DAILY [facility] Oxycodone HCl (Oxycodone) 5 mg PO Q4H [facility] Rivaroxaban (Xarelto) 10 mg PO BEDTIME [facility] Rosuvastatin Calcium (Crestor) 5 mg PO DAILY [facility] Senna/Docusate Sodium (Senna Plus) 2 tab PO BID PRN PRN Reason: Constipation Tramadol HCl (Ultram) 100 mg PO Q6HR PRN PRN Reason: Pain Last Admin: 06/27/17 18:00 Dose: 100 mg Zinc Gluconate (Zinc) 200 mg PO DAILY [facility] Assessment/Plan Comment:: As above. Extensive precautions were given to the patient, who is in agreement with the treatment plan. Note that secondary to registration error a duplicate Account was created delaying completion of my admission H&P from yesterday until this point with physical exam, etc. actually performed on 06/27/17 at time of patient's admission.
[2017-06-27] MEDS ORDERED: oxyCODONE 5 MG Tab PO SCH (20:00)
[2017-06-27] MEDS: Lactulose Soln 10 GM/15 ML 30 ML UD Cup PO SCH (20:04)
[2017-06-27] MEDS: Rivaroxaban 10 MG Tab PO SCH (20:07)
[2017-06-27] MEDS: hydrOXYzine Pamoate 25 MG Cap PO PRN (20:07)
[2017-06-28] MEDS: oxyCODONE 5 MG Tab PO PRN ×2 (00:07→08:53)
[2017-06-28] MEDS: traMADol 50 MG Tab PO PRN ×2 (04:08→12:27)
[2017-06-28 08:04] LABS: CHLORIDE,CL 104 mmol/L (98-107); SODIUM,NA 139 mmol/L (136-145)
[2017-06-28] MEDS: Calcium Carbonate/Vitamin D3 1500 MG-400 Units Tab PO SCH ×2 (08:49→17:10)
[2017-06-28] MEDS: Ferrous Sulfate 325 MG Tab PO SCH ×2 (08:50→17:10)
[2017-06-28] MEDS: Rosuvastatin 10 MG Tab PO SCH (08:51)
[2017-06-28] MEDS: Omeprazole 20 MG Cap.CR PO SCH (08:52)
[2017-06-28] MEDS: FLUoxetine 20 MG Cap PO SCH (08:52)
[2017-06-28] MEDS: Zinc (Zinc Gluconate) 50 MG Tab PO SCH (08:53)
[2017-06-28] MEDS: hydrOXYzine Pamoate 25 MG Cap PO PRN (08:54)
[2017-06-28] MEDS: LORazepam 1 MG Tab PO SCH ×2 (14:03→19:16)
[2017-06-28] MEDS: Acetaminophen 325 MG Tab PO SCH ×2 (14:04→19:18)
[2017-06-28] MEDS: Lactulose Soln 10 GM/15 ML 30 ML UD Cup PO SCH ×2 (19:18→19:27)
[2017-06-28] MEDS: Rivaroxaban 10 MG Tab PO SCH (19:20)
[2017-06-29] MEDS: Acetaminophen 325 MG Tab PO SCH ×4 (02:35→19:57)
[2017-06-29] MEDS: traMADol 50 MG Tab PO PRN (02:36)
[2017-06-29] MEDS: LORazepam 1 MG Tab PO SCH ×3 (08:17→19:56)
[2017-06-29] MEDS: Ferrous Sulfate 325 MG Tab PO SCH ×2 (08:18→17:21)
[2017-06-29] MEDS: Calcium Carbonate/Vitamin D3 1500 MG-400 Units Tab PO SCH ×2 (08:18→17:21)
[2017-06-29] MEDS: FLUoxetine 20 MG Cap PO SCH (08:19)
[2017-06-29] MEDS: Omeprazole 20 MG Cap.CR PO SCH (08:19)
[2017-06-29] MEDS: Zinc (Zinc Gluconate) 50 MG Tab PO SCH (08:20)
[2017-06-29] MEDS: Rosuvastatin 10 MG Tab PO SCH (08:23)
[2017-06-29] MEDS: fentaNYL 12 MCG/HR Transdermal Patch TRDERM SCH (08:24)
[2017-06-29] MEDS ORDERED: Pneumococcal 13-Valent Conjugate Vaccine 0.5 ML Syringe IM ONE (12:00)
[2017-06-29] MEDS: Menthol/Methyl Salicylate 85 GM Tube TOP PRN (16:51)
[2017-06-29] MEDS: Rivaroxaban 10 MG Tab PO SCH (19:59)
[2017-06-29] MEDS: Lactulose Soln 10 GM/15 ML 30 ML UD Cup PO SCH (20:00)
[2017-06-30] MEDS: Acetaminophen 325 MG Tab PO SCH ×4 (02:12→19:34)
[2017-06-30] MEDS: Calcium Carbonate/Vitamin D3 1500 MG-400 Units Tab PO SCH ×2 (08:28→18:14)
[2017-06-30] MEDS: LORazepam 1 MG Tab PO SCH ×3 (08:28→19:33)
[2017-06-30] MEDS: Rosuvastatin 10 MG Tab PO SCH (08:29)
[2017-06-30] MEDS: Ferrous Sulfate 325 MG Tab PO SCH ×2 (08:30→18:14)
[2017-06-30] MEDS: Omeprazole 20 MG Cap.CR PO SCH (08:30)
[2017-06-30] MEDS: FLUoxetine 20 MG Cap PO SCH (08:30)
[2017-06-30] MEDS: Zinc (Zinc Gluconate) 50 MG Tab PO SCH (08:32)
[2017-06-30] MEDS: traMADol 50 MG Tab PO PRN (15:48)
[2017-06-30] MEDS: Menthol/Methyl Salicylate 85 GM Tube TOP PRN (15:49)
[2017-06-30] MEDS: Lactulose Soln 10 GM/15 ML 30 ML UD Cup PO SCH ×2 (19:36→21:18)
[2017-06-30] MEDS: Rivaroxaban 10 MG Tab PO SCH (19:36)
[2017-07-01] MEDS: Acetaminophen 325 MG Tab PO SCH ×4 (01:09→20:17)
[2017-07-01] MEDS: LORazepam 1 MG Tab PO SCH ×3 (08:30→20:16)
[2017-07-01] MEDS: Calcium Carbonate/Vitamin D3 1500 MG-400 Units Tab PO SCH ×2 (08:31→18:08)
[2017-07-01] MEDS: Ferrous Sulfate 325 MG Tab PO SCH ×2 (08:32→18:08)
[2017-07-01] MEDS: Rosuvastatin 10 MG Tab PO SCH (08:32)
[2017-07-01] MEDS: FLUoxetine 20 MG Cap PO SCH (08:33)
[2017-07-01] MEDS: Omeprazole 20 MG Cap.CR PO SCH (08:33)
[2017-07-01] MEDS: Zinc (Zinc Gluconate) 50 MG Tab PO SCH (08:34)
[2017-07-01] MEDS: Lactulose Soln 10 GM/15 ML 30 ML UD Cup PO SCH ×2 (20:16→20:21)
[2017-07-01] MEDS: Rivaroxaban 10 MG Tab PO SCH (20:18)
[2017-07-02] MEDS: Acetaminophen 325 MG Tab PO SCH ×4 (01:32→19:49)
[2017-07-02] MEDS: LORazepam 1 MG Tab PO SCH ×3 (07:38→19:49)
[2017-07-02] MEDS: Calcium Carbonate/Vitamin D3 1500 MG-400 Units Tab PO SCH ×2 (07:39→17:12)
[2017-07-02] MEDS: Rosuvastatin 10 MG Tab PO SCH (07:40)
[2017-07-02] MEDS: fentaNYL 12 MCG/HR Transdermal Patch TRDERM SCH (07:42)
[2017-07-02] MEDS: Ferrous Sulfate 325 MG Tab PO SCH ×2 (07:43→17:12)
[2017-07-02] MEDS: FLUoxetine 20 MG Cap PO SCH (07:44)
[2017-07-02] MEDS: Omeprazole 20 MG Cap.CR PO SCH (07:44)
[2017-07-02] MEDS: Zinc (Zinc Gluconate) 50 MG Tab PO SCH (07:45)
[2017-07-02] MEDS: Rivaroxaban 10 MG Tab PO SCH (19:49)
[2017-07-02] MEDS: Lactulose Soln 10 GM/15 ML 30 ML UD Cup PO SCH (19:50)
[2017-07-03] MEDS: traMADol 50 MG Tab PO PRN (00:16)
[2017-07-03] MEDS: Acetaminophen 325 MG Tab PO SCH ×4 (02:50→19:33)
[2017-07-03] MEDS: LORazepam 1 MG Tab PO SCH ×3 (07:41→19:32)
[2017-07-03] MEDS: Calcium Carbonate/Vitamin D3 1500 MG-400 Units Tab PO SCH ×2 (07:42→17:25)
[2017-07-03] MEDS: Rosuvastatin 10 MG Tab PO SCH (07:43)
[2017-07-03] MEDS: Ferrous Sulfate 325 MG Tab PO SCH ×2 (07:44→17:25)
[2017-07-03] MEDS: Omeprazole 20 MG Cap.CR PO SCH (07:44)
[2017-07-03] MEDS: FLUoxetine 20 MG Cap PO SCH (07:45)
[2017-07-03] MEDS: Zinc (Zinc Gluconate) 50 MG Tab PO SCH (07:46)
[2017-07-03] MEDS: Rivaroxaban 10 MG Tab PO SCH (19:32)
[2017-07-03] MEDS: Lactulose Soln 10 GM/15 ML 30 ML UD Cup PO SCH (19:33)
[2017-07-04] MEDS: Acetaminophen 325 MG Tab PO SCH ×4 (02:03→19:56)
[2017-07-04] MEDS: LORazepam 1 MG Tab PO SCH ×3 (08:11→19:55)
[2017-07-04] MEDS: Calcium Carbonate/Vitamin D3 1500 MG-400 Units Tab PO SCH ×2 (08:12→17:14)
[2017-07-04] MEDS: Rosuvastatin 10 MG Tab PO SCH (08:13)
[2017-07-04] MEDS: Ferrous Sulfate 325 MG Tab PO SCH ×2 (08:13→17:15)
[2017-07-04] MEDS: Omeprazole 20 MG Cap.CR PO SCH (08:14)
[2017-07-04] MEDS: FLUoxetine 20 MG Cap PO SCH (08:14)
[2017-07-04] MEDS: Zinc (Zinc Gluconate) 50 MG Tab PO SCH (08:16)
[2017-07-04] MEDS: Lactulose Soln 10 GM/15 ML 30 ML UD Cup PO SCH (19:55)
[2017-07-04] MEDS: Rivaroxaban 10 MG Tab PO SCH (19:57)
[2017-07-05] MEDS: Acetaminophen 325 MG Tab PO SCH ×4 (02:36→20:11)
[2017-07-05] MEDS: LORazepam 1 MG Tab PO SCH ×3 (07:35→20:10)
[2017-07-05] MEDS: Ferrous Sulfate 325 MG Tab PO SCH ×2 (07:37→20:10)
[2017-07-05] MEDS: Calcium Carbonate/Vitamin D3 1500 MG-400 Units Tab PO SCH ×2 (07:37→20:10)
[2017-07-05] MEDS: Rosuvastatin 10 MG Tab PO SCH (07:38)
[2017-07-05] MEDS: FLUoxetine 20 MG Cap PO SCH (07:39)
[2017-07-05] MEDS: Omeprazole 20 MG Cap.CR PO SCH (07:39)
[2017-07-05] MEDS: Zinc (Zinc Gluconate) 50 MG Tab PO SCH (07:40)
[2017-07-05] MEDS: fentaNYL 12 MCG/HR Transdermal Patch TRDERM SCH (07:44)
[2017-07-05 07:50] LABS: CHLORIDE,CL 107 mmol/L (98-107); SODIUM,NA 141 mmol/L (136-145)
--- NOTE | 2017-07-05 10:27 | PCM.SN ---
- Free Text/Narrative Note: Labs and Micro reviewed today. Meds adjusted, including reduction of pain meds, etc. Note negative hemoccults x 2 and negative stool for C. diff. Still occasional loose stools. Not using stool softeners or lactulose. Try change from Prilosec to Pepcid. Anemia better. Continue iron. Repeat labs in 1 week. Ortho appointment today.
[2017-07-05] MEDS: Cephalexin 250 MG Cap PO SCH (20:10)
[2017-07-05] MEDS: Rivaroxaban 10 MG Tab PO SCH (20:11)
[2017-07-06] MEDS: Acetaminophen 325 MG Tab PO SCH ×4 (01:19→20:10)
[2017-07-06] MEDS: LORazepam 1 MG Tab PO SCH ×3 (08:23→20:09)
[2017-07-06] MEDS: Calcium Carbonate/Vitamin D3 1500 MG-400 Units Tab PO SCH ×2 (08:24→18:27)
[2017-07-06] MEDS: Rosuvastatin 10 MG Tab PO SCH (08:24)
[2017-07-06] MEDS: Ferrous Sulfate 325 MG Tab PO SCH ×2 (08:25→18:27)
[2017-07-06] MEDS: FLUoxetine 20 MG Cap PO SCH (08:27)
[2017-07-06] MEDS: Zinc (Zinc Gluconate) 50 MG Tab PO SCH (08:29)
[2017-07-06] MEDS: Famotidine 20 MG Tab PO SCH (08:37)
[2017-07-06] MEDS: Cephalexin 250 MG Cap PO SCH ×3 (08:37→18:29)
[2017-07-06] MEDS: Rivaroxaban 10 MG Tab PO SCH (20:13)
[2017-07-07] MEDS: traMADol 50 MG Tab PO PRN (00:37)
[2017-07-07] MEDS: Acetaminophen 325 MG Tab PO SCH ×4 (01:23→19:10)
[2017-07-07] MEDS: FLUoxetine 20 MG Cap PO SCH (08:40)
[2017-07-07] MEDS: LORazepam 1 MG Tab PO SCH ×3 (08:40→19:09)
[2017-07-07] MEDS: Calcium Carbonate/Vitamin D3 1500 MG-400 Units Tab PO SCH ×2 (08:40→17:57)
[2017-07-07] MEDS: Cephalexin 250 MG Cap PO SCH ×2 (08:40→11:26)
[2017-07-07] MEDS: Ferrous Sulfate 325 MG Tab PO SCH ×2 (08:40→17:57)
[2017-07-07] MEDS: Rosuvastatin 10 MG Tab PO SCH (08:40)
[2017-07-07] MEDS: Famotidine 20 MG Tab PO SCH (08:40)
[2017-07-07] MEDS: Zinc (Zinc Gluconate) 50 MG Tab PO SCH (08:41)
[2017-07-07] MEDS: Sulfamethoxazole/Trimethoprim 800-160 MG Tab PO SCH (17:57)
[2017-07-07] MEDS: Rivaroxaban 10 MG Tab PO SCH (19:10)
[2017-07-08] MEDS: Acetaminophen 325 MG Tab PO SCH ×4 (02:14→20:27)
[2017-07-08] MEDS: Calcium Carbonate/Vitamin D3 1500 MG-400 Units Tab PO SCH ×2 (08:11→17:17)
[2017-07-08] MEDS: LORazepam 1 MG Tab PO SCH ×3 (08:11→20:27)
[2017-07-08] MEDS: Rosuvastatin 10 MG Tab PO SCH (08:13)
[2017-07-08] MEDS: Ferrous Sulfate 325 MG Tab PO SCH ×2 (08:14→17:18)
[2017-07-08] MEDS: FLUoxetine 20 MG Cap PO SCH (08:15)
[2017-07-08] MEDS: Famotidine 20 MG Tab PO SCH (08:15)
[2017-07-08] MEDS: Sulfamethoxazole/Trimethoprim 800-160 MG Tab PO SCH ×2 (08:16→17:18)
[2017-07-08] MEDS: Zinc (Zinc Gluconate) 50 MG Tab PO SCH (08:17)
[2017-07-08] MEDS: Rivaroxaban 10 MG Tab PO SCH (20:27)
[2017-07-09] MEDS: Acetaminophen 325 MG Tab PO SCH ×4 (02:04→20:14)
[2017-07-09] MEDS: Calcium Carbonate/Vitamin D3 1500 MG-400 Units Tab PO SCH ×2 (07:50→17:54)
[2017-07-09] MEDS: LORazepam 1 MG Tab PO SCH ×3 (07:50→13:56)
[2017-07-09] MEDS: Rosuvastatin 10 MG Tab PO SCH (07:51)
[2017-07-09] MEDS: Famotidine 20 MG Tab PO SCH (07:52)
[2017-07-09] MEDS: Ferrous Sulfate 325 MG Tab PO SCH ×2 (07:52→17:54)
[2017-07-09] MEDS: FLUoxetine 20 MG Cap PO SCH (07:53)
[2017-07-09] MEDS: Sulfamethoxazole/Trimethoprim 800-160 MG Tab PO SCH ×2 (07:53→17:54)
[2017-07-09] MEDS: Zinc (Zinc Gluconate) 50 MG Tab PO SCH (07:54)
[2017-07-09] MEDS ORDERED: LORazepam 1 MG Tab PO PRN (19:32)
[2017-07-09] MEDS: Rivaroxaban 10 MG Tab PO SCH (20:13)
[2017-07-09] MEDS: Ondansetron 4 MG Tab.DIS PO PRN (20:13)
[2017-07-10] MEDS: Ondansetron 4 MG Tab.DIS PO PRN ×2 (01:48→08:21)
[2017-07-10] MEDS: Acetaminophen 325 MG Tab PO SCH ×3 (03:59→14:42)
[2017-07-10] MEDS: Calcium Carbonate/Vitamin D3 1500 MG-400 Units Tab PO SCH ×2 (08:05→08:28)
[2017-07-10] MEDS: Rosuvastatin 10 MG Tab PO SCH ×2 (08:06→08:30)
[2017-07-10] MEDS: Ferrous Sulfate 325 MG Tab PO SCH (08:07)
[2017-07-10] MEDS: FLUoxetine 20 MG Cap PO SCH (08:08)
[2017-07-10] MEDS: Famotidine 20 MG Tab PO SCH (08:08)
[2017-07-10] MEDS: Sulfamethoxazole/Trimethoprim 800-160 MG Tab PO SCH (08:09)
[2017-07-10] MEDS: Zinc (Zinc Gluconate) 50 MG Tab PO SCH ×2 (08:10→08:30)
[2017-07-10 09:30] VITALS: BP 125/59
--- NOTE | 2017-07-10 10:51 | PCM.DCSUM1 ---
Discharge Summary - Discharge Data Discharge Date: 07/10/17 Discharge Disposition: DC/Tfer to Acute Hospital 02 Condition: Good - Discharge Diagnosis/Problem(s) (1) Infected prosthesis of left hip SNOMED Code(s): 880312276, [id number] ICD Code: T84.52XA - INFECT/INFLM REACTION DUE TO INTERNAL LEFT HIP PROSTH, INIT Status: Acute Priority: High Current Visit: Yes Problem Details: Patient noted to have increased redness and swelling around operative site of left hip overnight. Staph aureus noted when wound drainage cultured recently. Qualifiers: Qualified Code(s): T84.52XA - Infection and inflammatory reaction due to internal left hip prosthesis, initial encounter - Patient Summary/Data Complications: Changes suspicious for infection noted Consults: Consultations 06/27/17 15:55 PT Evaluation and Treatment [CONS] Routine 06/27/17 15:56 OT Evaluation and Treatment [CONS] Routine 07/04/17 11:02 Consult to Dietary [Consult to [employer] Operator] [CONS] Routine Hospital Course: Patient admitted on Swing Bed for rehab after hip replacement. Was doing well. Noted to have small amount drainage that was sent for culture. Today now has increased swelling and warmth/tenderness near operative site. Temp elevated to 100. Infection suspected. Call placed to [facility]. Transfer arranged with , Hospitalist as accepting MD. Orthopedics is aware patient will be returning. They requested that no additional antibiotics be given. - Discharge Plan Prescriptions/Med Rec: Sulfamethoxazole/Trimethoprim [Bactrim Ds Tablet] 1 each PO BID #20 tablet Home Medications: Home Meds Acetaminophen [Tylenol Arthritis] 650 mg PO Q8HR PRN 06/27/17 [History] Calcium Carbonate/Vitamin D3 [Calcium 500 + Vit D 400] 1 tab PO BID 06/27/17 [ History] Cetirizine HCl [Zyrtec] 10 mg PO DAILY PRN 06/27/17 [History] FLUoxetine [PROzac] 40 mg PO DAILY 06/27/17 [History] Ferrous Gluconate 324 mg PO BID 06/27/17 [History] Lactulose 30 ml PO BEDTIME 06/27/17 [History] Non-Formulary Medication [NF Drug] 3 tab PO BID PRN 06/27/17 [History] Nystatin 15 gm TP BID 06/27/17 [History] Omeprazole 20 mg PO DAILY 06/27/17 [History] Rivaroxaban [Xarelto] 10 mg PO DAILY 06/27/17 [History] Rosuvastatin Calcium 5 mg PO DAILY 06/27/17 [History] Sennosides/Docusate Sodium [Senna-S] 2 tab PO BID PRN 06/27/17 [History] Ubidecarenone [Co Q-10] 100 mg PO DAILY 06/27/17 [History] Zinc Sulfate 220 mg PO DAILY 06/27/17 [History] fentaNYL [Duragesic] 12 mcg TRDERM Q72H 06/27/17 [History] hydrOXYzine Pamoate [Hydroxyzine Pamoate] 50 mg PO Q6HR PRN 06/27/17 [History] oxyCODONE 5 mg PO Q4H PRN 06/27/17 [History] traMADol [Ultram] 100 tab PO Q6HR PRN 06/27/17 [History] Sulfamethoxazole/Trimethoprim [Bactrim Ds Tablet] 1 each PO BID #20 tablet 07/07 [Rx] Referrals: Aide Jenkins PA-C [Physician Paper Cutter Operator] - - Discharge Summary/Plan Comment DC Time >30 min.: Yes (Waiting for bed assignment from [facility]. ) Discharge Summary/Plan Comment: Patient will be taken by private vehicle directly to [facility] for treatment of suspected hip infection. - General Info Date of Service: 07/10/17 Admission Dx/Problem (Free Text: Admission Diagnosis/Problem Admission Diagnosis/Problem Hip fracture requiring operative repair Functional Status: Reports: Tolerating Diet, Urinating, New Symptoms (increased pain and swelling left hip) - Review of Systems General: Reports: Fever (low grade temp elevation), Malaise HEENT: Reports: No Symptoms Pulmonary: Reports: No Symptoms Cardiovascular: Reports: No Symptoms Gastrointestinal: Reports: No Symptoms Genitourinary: Reports: No Symptoms Musculoskeletal: Reports: Other (Does not report increased pain in actual left hip joint) Skin: Reports: Other (increased warmth and swelling near incision site left hip) Neurological: Reports: No Symptoms Psychiatric: Reports: No Symptoms - Patient Data Vitals - Most Recent: Last Vital Signs Temp 37.7 C 07/10/17 08:00 Pulse 75 07/10/17 08:00 Resp 16 07/10/17 08:00 BP 125/59 L 07/10/17 08:00 Pulse Ox 93 L 07/10/17 08:00 Weight - Most Recent: 80.331 kg I&O - Last 24 hours: Intake & Output 07/09/17 07/10/17 07/10/17 22:59 06:59 14:59 Intake Total 240 Balance 240 Med Orders - Current: Current Medications Acetaminophen (Tylenol) 650 mg PO Q6H [facility] Last Admin: 07/10/17 08:09 Dose: 650 mg Calcium Carbonate (Caltrate 600+D 1500 Mg-400 Units) 1 tab PO BID [facility] Last Admin: 07/10/17 08:28 Dose: Not Given Cetirizine HCl (Zyrtec) 10 mg PO DAILY PRN PRN Reason: Allergies Last Admin: 06/28/17 00:09 Dose: 10 mg Coenzyme Q10 (Coenzyme Q10) 100 mg PO DAILY [facility] Last Admin: 07/10/17 08:30 Dose: Not Given Famotidine (Pepcid) 20 mg PO DAILY [facility] Last Admin: 07/10/17 08:08 Dose: 20 mg Ferrous Sulfate (Ferrous Sulfate) 325 mg PO BID [facility] Last Admin: 07/10/17 08:07 Dose: 325 mg Fluoxetine HCl (Prozac) 40 mg PO DAILY [facility] Last Admin: 07/10/17 08:08 Dose: 40 mg Lorazepam (Ativan) 1 mg PO TID PRN PRN Reason: Anxiety Last Admin: 07/10/17 05:27 Dose: 1 mg Methyl Salicylate (Icy Hot Cream) 0 gm TOP ASDIRECTED PRN PRN Reason: Pain Last Admin: 06/30/17 15:49 Dose: 1 applic Ondansetron HCl (Zofran Odt) 4 mg PO Q6H PRN PRN Reason: Nausea/Vomiting Last Admin: 07/10/17 08:21 Dose: 4 mg Rivaroxaban (Xarelto) 10 mg PO BEDTIME [facility] Last Admin: 07/09/17 20:13 Dose: 10 mg Rosuvastatin Calcium (Crestor) 5 mg PO DAILY [facility] Last Admin: 07/10/17 08:30 Dose: Not Given Senna/Docusate Sodium (Senna Plus) 2 tab PO BID PRN PRN Reason: Constipation Tramadol HCl (Ultram) 100 mg PO Q6HR PRN PRN Reason: Pain (moderate 4-6) Last Admin: 07/07/17 00:37 Dose: 100 mg Trimethoprim/Sulfamethoxazole (Septra Ds) 1 tab PO BID [facility] Stop: 07/17/17 08:00 Last Admin: 07/10/17 08:09 Dose: 1 tab Zinc Gluconate (Zinc) 200 mg PO DAILY [facility] Last Admin: 07/10/17 08:30 Dose: Not Given Discontinued Medications Cephalexin (Keflex) 500 mg PO TID [facility] Stop: 07/12/17 12:00 Last Admin: 07/07/17 11:26 Dose: 500 mg Fentanyl (Duragesic) 12 mcg TRDERM Q72H [facility] Last Admin: 07/05/17 07:44 Dose: 12 mcg Hydroxyzine Pamoate (Vistaril) 50 mg PO Q6HR PRN PRN Reason: Itching Last Admin: 06/28/17 08:54 Dose: 50 mg Lactulose (Cephulac) 20 gm PO BEDTIME [facility] Last Admin: 07/04/17 19:55 Dose: Not Given Lorazepam (Ativan) 1 mg PO TID@0800,1400,2000 [facility] Last Admin: 07/09/17 13:56 Dose: Not Given Miscellaneous Information (Remove Patch) 1 ea TRDERM Q72H [facility] Last Admin: 07/05/17 07:44 Dose: 1 ea Excedrin Migraine 3 each PO BID PRN PRN Reason: Headache Omeprazole (Omeprazole) 20 mg PO DAILY [facility] Last Admin: 07/05/17 07:39 Dose: 20 mg Oxycodone HCl (Oxycodone) 5 mg PO Q4H [facility] Last Admin: 06/27/17 20:04 Dose: 5 mg Oxycodone HCl (Oxycodone) 5 mg PO Q4H PRN PRN Reason: Pain (severe 7-10) Last Admin: 06/28/17 08:53 Dose: 5 mg Pneumococcal 13-Valent Conj Vacc (Prevnar 13) 0.5 ml IM .ONCE ONE Stop: 06/29/17 12:01 Last Admin: 06/29/17 11:19 Dose: 0.5 ml - Exam Quality Assessment: Reports: DVT Prophylaxis General: Reports: Alert, Oriented, Cooperative, No Acute Distress HEENT: Reports: Pupils Equal, Pupils Reactive, EOMI, Mucous Membr. Moist/[place] Neck: Reports: Supple Lungs: Reports: Clear to Auscultation, Normal Respiratory Effort Cardiovascular: Reports: Regular Rate, Regular Rhythm GI/Abdominal Exam: Soft, Non-Tender Extremities: Other (left hip mildly swollen compared to right. Increased swelling/tenderness/warmth near incision of left hip area. Small area of drainage superiorly. ) Neurological: Reports: No New Focal Deficit Psy/Mental Status: Reports: Alert, Normal Affect, Normal Mood *Q Meaningful Use (DIS) - VTE *Q VTE Criteria *Q: - Stroke *Q Stroke Criteria *Q: - AMI *Q AMI Criteria *Q:
[2017-07-10] MEDS: traMADol 50 MG Tab PO PRN (11:28)
== END 2017-07-10 14:10 | DRG 559 ==
LOC: LL.SWG 13:15
PROVIDERS: ADMIT Family Medicine; ATTEND Family Medicine
PROC: 3E0234Z Introduction of Serum, Toxoid and Vaccine into Muscle, Percutaneous Approach (ICD-10-PCS; principal; 2017-06-29)
DX: Z47.89 Encounter for other orthopedic aftercare (principal); S72.009A Fracture of unspecified part of neck of unspecified femur, initial encounter for closed fracture; T84.52XA Infection and inflammatory reaction due to internal left hip prosthesis, initial encounter; R53.1 Weakness; Z88.1 Allergy status to other antibiotic agents; Z88.6 Allergy status to analgesic agent; Z88.8 Allergy status to other drugs, medicaments and biological substances; Z91.09 Other allergy status, other than to drugs and biological substances; Z79.899 Other long term (current) drug therapy; J30.9 Allergic rhinitis, unspecified; E78.00 Pure hypercholesterolemia, unspecified; I10 Essential (primary) hypertension; K59.09 Other constipation; M19.90 Unspecified osteoarthritis, unspecified site; G89.29 Other chronic pain; M54.9 Dorsalgia, unspecified; D64.9 Anemia, unspecified; Z96.649 Presence of unspecified artificial hip joint; Z87.891 Personal history of nicotine dependence; E78.5 Hyperlipidemia, unspecified; F41.8 Other specified anxiety disorders; Z23 Encounter for immunization
CPT/HCPCS: 36415; 72170; 80053; 82272; 85025; 85610; 85730; 87070; 87077; 87186; 87493; 90670; 97110-GO; 97110-GP; 97116-GP; 97161-GP; 97165-GO; 97530-GO; 97530-GP; 97535-GO; A9270-GY; G0009; Q0177

== ENCOUNTER 2017-07-15 15:48 | Inpatient (IN) | payer MEDICARE, BC ==
[2017-07-15] MEDS ORDERED: fentaNYL 12 MCG/HR Transdermal Patch TRDERM SCH (19:30)
[2017-07-15] MEDS ORDERED: oxyCODONE 5 MG Tab PO PRN (19:30)
[2017-07-15] MEDS ORDERED: hydrOXYzine Pamoate 25 MG Cap PO PRN (19:54)
[2017-07-15] MEDS: Ferrous Sulfate 325 MG Tab PO SCH (20:48)
[2017-07-15] MEDS: Rosuvastatin 10 MG Tab PO SCH ×2 (20:48→20:50)
[2017-07-15] MEDS: Calcium Carbonate/Vitamin D3 1500 MG-400 Units Tab PO SCH (20:48)
[2017-07-15] MEDS: Lactulose Soln 10 GM/15 ML 30 ML UD Cup PO SCH (20:48)
[2017-07-15] MEDS: Cephalexin 250 MG Cap PO SCH (20:49)
--- NOTE | 2017-07-15 21:30 | PCM.HP ---
H&P History of Present Illness - General Date of Service: 07/15/17 Admit Problem/Dx: Admission Diagnosis/Problem Admission Diagnosis/Problem Hip fracture requiring operative repair Source of Information: Patient History Limitations: Reports: No Limitations - History of Present Illness Initial Comments - Free Text/Narative: Patient re-admitted to [facility] after evaluation at [facility] to rule out hip infection s/p left hip arthroplasty. At this time, it appears that the swelling and pain was an inflammation reaction per patient and notes from [facility]. A significant amount of fluid was drained from the area using guided US. This fluid tested negative for infection. She continues to be treated with oral Keflex. No other changes were made. Generalized Pain Score (Numeric/FACES): 6 - Related Data Allergies/Adverse Reactions: Allergies Allergy/AdvReac Type Severity Reaction Status Date / Time apixaban [From Eliquis] Allergy Numbness Verified 07/15/17 16:06 azithromycin [From Zithromax] Allergy Swollen Verified 07/15/17 16:06 Eyes celecoxib [From Celebrex] Allergy Swollen Verified 07/15/17 16:06 Eyes morphine Allergy Headache Verified 07/15/17 16:06 oxycodone Allergy Itching Verified 07/15/17 16:06 metals Allergy Rash Uncoded 07/15/17 16:06 Home Medications: Home Meds Acetaminophen [Tylenol Arthritis] 650 mg PO Q8HR PRN 06/27/17 [History] Calcium Carbonate/Vitamin D3 [Calcium 500 + Vit D 400] 1 tab PO BID 06/27/17 [ History] Cetirizine HCl [Zyrtec] 10 mg PO DAILY PRN 06/27/17 [History] FLUoxetine [PROzac] 40 mg PO DAILY 06/27/17 [History] Ferrous Gluconate 324 mg PO BID 06/27/17 [History] Lactulose 30 ml PO BEDTIME 06/27/17 [History] Non-Formulary Medication [NF Drug] 3 tab PO BID PRN 06/27/17 [History] Nystatin 1 applic TP BID 06/27/17 [History] Omeprazole 20 mg PO DAILY 06/27/17 [History] Rivaroxaban [Xarelto] 10 mg PO DAILY 06/27/17 [History] Rosuvastatin Calcium 5 mg PO DAILY 06/27/17 [History] Sennosides/Docusate Sodium [Senna-S] 2 tab PO BID PRN 06/27/17 [History] Ubidecarenone [Co Q-10] 100 mg PO DAILY 06/27/17 [History] fentaNYL [Duragesic] 12 mcg TRDERM Q72H 06/27/17 [History] hydrOXYzine Pamoate [Hydroxyzine Pamoate] 50 mg PO Q6HR PRN 06/27/17 [History] oxyCODONE 5 mg PO Q4H PRN 06/27/17 [History] Cephalexin 500 mg PO QID 07/15/17 [History] Past Medical History HEENT History: Reports: Allergic Rhinitis. Denies: Cataract, Glaucoma, Hard of Hearing, Impaired Vision, Macular Degeneration, Retinal Detachment Other HEENT History: seasonal allergies Cardiovascular History: Reports: High Cholesterol, Hypertension Respiratory History: Reports: Intubation, Previous, None Gastrointestinal History: Reports: Cholelithiasis, Chronic Constipation (With narcotic medications otherwise nonproblematic). Denies: Bowel Obstruction, Celiac Disease, Colon Polyp, Diverticulosis, Fecal Incontinence, Gastritis, GERD , GI Bleed, Hiatal Hernia, Inflammatory Bowel Disease, Irritable Bowel Syndrome , Jaundice, PUD Genitourinary History: Reports: None. Denies: Acute Renal Failure, Chronic Renal Insuffiency, Renal Calculus, Retention, Urinary, STD, Urinary Incontinence , UTI, Recurrent [employer] History: Reports: Dysfunctional Uterine Bleeding, Fibroids, Musculoskeletal History: Reports: Arthritis, Back Pain, Chronic, Fibromyalgia, Fracture, Other (See Below), Osteoarthritis Other Musculoskeletal History: Postoperative left proximal femur fracture on 06/16 Neurological History: Reports: Migraines Psychiatric History: Reports: Anxiety, Depression Endocrine/Metabolic History: Reports: None Hematologic History: Reports: Anemia, Blood Transfusion(s), Iron Deficiency, Other (See Below) Other Hematologic History: History of significant postoperative bleeding with all previous surgeries of unknown etiology with no known specific previous workup. Only blood transfusion required with open cholecystectomy in the early Immunologic History: Reports: None Oncologic (Cancer) History: Reports: None Dermatologic History: Reports: Eczema - Infectious Disease History Infectious Disease History: Reports: Chicken Pox. Denies: C-Difficile, Measles , Meningitis, Mononucleosis, MRSA, Mumps, Pertussis (Whooping Cough), Rheumatic Fever, Rubella, Scarlet Fever, Shingles, TB, VRE - Past Surgical History Head Surgeries/Procedures: Reports: None HEENT Surgical History: Reports: Other (See Below), Oral Surgery Cardiovascular Surgical History: Reports: None Other GI Surgeries/Procedures: open cholecystectomy with significant postoperative bleed requiring transfusion in the early Female Surgical History: Reports: Section, Hysterectomy, Other (See Below), Salpingo-Oophorectomy, Tubal Ligation Other Female Surgeries/Procedures: Hysterectomy in the secondary to fibroids Endocrine Surgical History: Reports: None Neurological Surgical History: Reports: None Other Musculoskeletal Surgeries/Procedures:: Left hip TEP on 06/15/17, right hip TEP on 04/19/16, right knee arthroscopic surgery in May 2017 Oncologic Surgical History: Reports: None Dermatological Surgical History: Reports: None - Past Imaging History Past Imaging History: Reports: MRI (Right shoulder on 07/08/16) Social & Family History - Family History Family Medical History: Noncontributory HEENT: Reports: None. Denies: Allergic Rhinitis, Glaucoma, Macular Degeneration Cardiac: Reports: CAD, Heart Failure, WA, Other (See Below), Stent Other Cardiac Family History: Father with fatal WA with possible additional CHF in his 80s with previous PTCA and stent 2 in his 70s Respiratory: Reports: None. Denies: Asthma, COPD, PE, Pneumothorax, Sleep Apnea GI: Reports: None. Denies: Celiac Disease, Cholelithiasis, Colon Polyps, GERD, GI bleed, Inflammatory Bowel Disease, Irritable Bowel Syndrome, PUD : Reports: None. Denies: Dialysis, Renal Calculus, Renal Disease/ Insufficiency OBGYN: Reports: None. Denies: Dysfunctional uterine bleeding, Endometriosis, Recurrent Spontaneous Musculoskeletal: Reports: None. Denies: Gout, RA, SLE Neurological: Reports: CVA, MS, Other (See Below). Denies: Alzheimers Disease, Cerebral Aneurysms, Dementia, Migraines, Parkinson's, Seizure, TIA Other Neurological Family History: mother, maternal maternal aunt 1 and maternal uncles 2 all with MS; maternal grandmother with fatal CVA in her 60s with paternal grandmother with fatal CVA in her early 50s Psychiatric: Reports: None. Denies: Abuse, Victim of, ADD, ADHD, Anxiety, Depression, Psych Hospitalization(s), PTSD, Suicide Attempt, Other (See Below) Endocrine/Metabolic: Reports: Diabetes, type II, IDDM, Other (See Below). Denies: Hypothyroidism Other Endocrine/Metabolic Family History: Father and maternal grandmother with IDDM Hematologic: Reports: None. Denies: Anemia, SLE Immunologic: Reports: None. Denies: AIDS, HIV, SLE Dermatologic: Reports: Eczema, Other (See Below) Other Dermatologic Family History: Father with eczema Oncologic: Reports: Lung, Metastatic, Other (See Below). Denies: Breast, Cervix , Colon, Hodgkin's Lymphoma, Leukemia, Non-Hodgkin's Lymphoma, Ovarian, Prostate , Skin, Uterine Other Oncologic Family History: Father with metastatic lung cancer with history of tobacco use - Tobacco Use Smoking Status *Q: Former Smoker Years of Tobacco use: 17 Packs/Tins Daily: 1 Used Tobacco, but Quit: Yes Month Tobacco Last Used: 40 years Second Hand Smoke Exposure: No - Caffeine Use Caffeine Use: Reports: Coffee, Soda - Alcohol Use Days Per Week of Alcohol Use: 3 (No previous DWIs, problems with alcohol abuse, etc.) Number of Drinks Per Day: 3 (Usually mixed drinks or beer) Total Drinks Per Week: 9 - Recreational Drug Use Recreational Drug Use: No Drug Use in Last 12 Months: No - Living Situation & Occupation Living situation: Reports: with Family, 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 Denies: Fever, Chills, Diaphoresis, Decreased Appetite HEENT: Reports: No Symptoms Pulmonary: Reports: No Symptoms Cardiovascular: Reports: No Symptoms Gastrointestinal: Reports: No Symptoms Genitourinary: Reports: No Symptoms Musculoskeletal: Reports: Joint Pain (in replaced left hip, improving) Skin: Reports: No Symptoms Psychiatric: Reports: No Symptoms Neurological: Reports: No Symptoms Hematologic/Lymphatic: Reports: No Symptoms Immunologic: Reports: No Symptoms Exam - Exam Exam: See Below - Vital Signs Vital Signs: Last Vital Signs Temp 37.1 C 07/15/17 18:41 Pulse 78 07/15/17 18:41 Resp 16 07/15/17 18:41 BP 136/74 07/15/17 18:41 Pulse Ox 95 07/15/17 18:41 Weight: 79.288 kg - Exam Quality Assessment: DVT Prophylaxis General: Alert, Oriented, Cooperative HEENT: Conjunctiva Clear, EACs Clear, EOMI, Hearing Intact, Mucosa Moist & [place] , Nares Patent, Posterior Pharynx Clear, Pupils Equal, Pupils Reactive, TMs Clear Neck: Supple, Trachea Midline Lungs: Clear to Auscultation, Normal Respiratory Effort Cardiovascular: Regular Rate, Regular Rhythm GI/Abdominal Exam: Normal Bowel Sounds, Soft, Non-Tender, No Distention (Female) Exam: Deferred Rectal (Female) Exam: Deferred Back Exam: Normal Inspection Extremities: Normal Inspection, No Pedal Edema, Normal Capillary Refill, Other ( appropriate level of discomfort with palpation and ROM in left hip) Peripheral Pulses: 2+: Radial (L), Radial (R), Dorsalis Pedis (L), Dorsalis Pedis (R) Skin: Warm, Dry, Intact, Other (Left hip incisions healing well) Neurological: Reflexes Equal Bilateral, Strength Equal Bilateral Neuro Extensive - Mental Status: Alert, Oriented x3, Normal Mood/Affect, Normal Cognition, Memory Intact DTR: 2+: Patella (L), Patella (R) Psychiatric: Alert, Normal Affect, Normal Mood *Q Meaningful Use (ADM) - VTE *Q VTE Criteria *Q: - Stroke *Q Stroke Criteria *Q: - AMI *Q AMI Criteria *Q: - Problem List (1) Fracture, proximal femur SNOMED Code(s): 276153634 ICD Code: S72.009A - FRACTURE OF UNSP PART OF NECK OF UNSP FEMUR, INIT Status: Acute Priority: High Current Visit: No Onset Date: 06/16/17 Problem Details: Recent postoperative proximal left femur fracture on 06/16 with required revision of her left hip on 06/22/17. Initiate physical therapy and occupational therapy with follow-up already scheduled at the orthopedic clinic at [facility]. Activity restrictions as per physical therapy and occupational therapy. Strict fall precautions. They recommended dressing changes only on a weekly basis. Note significant narcotic pain therapy at this time with patient to be changed from scheduled to when necessary oxycodone with extreme discretion with attempt to discontinue this medication and low-dose fentanyl patch GREG. Regularly scheduled Tylenol regimen to be initiated with additional Ultram therapy for breakthrough pain. Patient aware of my concerns of addiction from the above medications and is in agreement with this treatment plan Qualifiers: Encounter type: subsequent encounter Fracture type: closed Laterality: left (2) Allergic rhinitis SNOMED Code(s): 89330782 ICD Code: J30.9 - ALLERGIC RHINITIS, UNSPECIFIED Status: Chronic Priority : Medium Current Visit: No Problem Details: Stable by history Qualifiers: Chronicity: chronic Allergic rhinitis trigger: pollen Allergic rhinitis seasonality: seasonal Qualified Code(s): J30.1 - Allergic rhinitis due to pollen (3) Hyperlipidemia SNOMED Code(s): 60723254 ICD Code: E78.5 - HYPERLIPIDEMIA, UNSPECIFIED Status: Chronic Priority: Medium Current Visit: No Problem Details: Currently under therapy with repeat lipid panel by her regular provider after discharge Qualifiers: Hyperlipidemia type: unspecified Qualified Code(s): E78.5 - Hyperlipidemia , unspecified (4) Hypertension SNOMED Code(s): 34611134 ICD Code: I10 - ESSENTIAL (PRIMARY) HYPERTENSION Status: Chronic Priority : Medium Current Visit: No Problem Details: Stable by history. Continue to observe closely Qualifiers: Hypertension type: essential hypertension Qualified Code(s): I10 - Essential (primary) hypertension (5) Mixed anxiety depressive disorder SNOMED Code(s): 769701670 ICD Code: F41.8 - OTHER SPECIFIED ANXIETY DISORDERS Status: Chronic Priority: Medium Current Visit: No Problem Details: Stable by history (6) Osteoarthritis SNOMED Code(s): 145527237 ICD Code: M19.90 - UNSPECIFIED OSTEOARTHRITIS, UNSPECIFIED SITE Status: Chronic Priority: Medium Current Visit: No Problem Details: Other than recent left femur fracture and occasional left knee pain stable by history. Note negative recent left knee x-rays at [facility] prior to transfer to this facility. Qualifiers: Osteoarthritis location: multiple joints Osteoarthritis type: primary Qualified Code(s): M15.0 - Primary generalized (osteo)arthritis Problem List Initiated/Reviewed/Updated: Yes Orders Last 24hrs: Active Orders 24 hr Category Date Time Status Patient Status [ADT] Routine ADT 07/15/17 19:35 Ordered Antiembolic Devices [RC] .Routine Care 07/15/17 19:46 Ordered Height and Weight [RC] UPON Care 07/15/17 19:35 Ordered May Shower [RC] ASDIRECTED Care 07/15/17 19:35 Ordered Pulse Oximetry [RC] PRN Care 07/15/17 19:45 Ordered Up With Assistance [RC] ASDIRECTED Care 07/15/17 19:35 Ordered VTE/DVT Education [RC] PER UNIT ROUTINE Care 07/15/17 19:46 Ordered Vital Signs [RC] PER UNIT ROUTINE Care 07/15/17 19:35 Ordered OT Evaluation and Treatment [CONS] Routine Cons 07/15/17 19:48 Ordered PT Evaluation and Treatment [CONS] Routine Cons 07/15/17 19:47 Ordered Heart Healthy Diet [DIET] Diet 07/16/17 Breakfast Ordered Acetaminophen [Tylenol Arthritis Pain] Med 07/15/17 19:30 Ordered 650 mg PO Q8HR PRN Calcium Carbonate/Vitamin D3 [Calcium 500 + Vit D 400] Med 07/16/17 08:00 Ordered 1 tab PO BID Cephalexin [Cephalexin] Med 07/15/17 20:00 Ordered 500 mg PO QID Cetirizine HCl [Zyrtec] Med 07/15/17 19:30 Ordered 10 mg PO DAILY PRN Cholecalciferol (Vitamin D3) [Vitamin D3] Med 07/16/17 08:00 Ordered 2,000 units PO DAILY Docusate Sodium/Sennosides [Senna Plus] Med 07/15/17 19:30 Ordered 2 tab PO BID PRN FLUoxetine [PROzac] Med 07/16/17 08:00 Ordered 40 mg PO DAILY Ferrous Gluconate [Ferrous Gluconate] Med 07/16/17 08:00 Ordered 324 mg PO BID Lactulose [Lactulose] Med 07/15/17 20:00 Ordered 30 ml PO BEDTIME Non-Formulary Medication [NF Drug] Med 07/15/17 19:30 Ordered 3 tab PO BID PRN Nystatin [Nystop] Med 07/16/17 08:00 Ordered 1 applic TOP BID Omeprazole Med 07/16/17 08:00 Ordered 20 mg PO DAILY Rivaroxaban [Xarelto] Med 07/16/17 08:00 Ordered 10 mg PO DAILY Rosuvastatin [Crestor] Med 07/15/17 19:30 Ordered 10 mg PO BEDTIME Ubidecarenone [Coenzyme Q10] Med 07/16/17 08:00 Ordered 100 mg PO DAILY fentaNYL [Duragesic] Med 07/15/17 19:30 Ordered 12 mcg TRDERM Q72H hydrOXYzine Pamoate [Hydroxyzine Pamoate] Med 07/15/17 19:30 Ordered 50 mg PO Q6HR PRN oxyCODONE Med 07/15/17 19:30 Ordered 5 mg PO Q4H PRN Antiembolic Hose [OM.PC] Per Unit Routine Ot 07/15/17 19:47 Ordered DVT/VTE Prophylaxis Reflex [OM.PC] Routine Ot 07/15/17 19:35 Ordered Resuscitation Status Routine Resus Stat 07/15/17 19:35 Ordered Medication Orders Acetaminophen (Tylenol Arthritis Pain) 650 mg PO Q8HR PRN PRN Reason: Pain (mild 1-3) Calcium Carbonate (Caltrate 600+D 1500 Mg-400 Units) 1 tab PO BID [facility] Last Admin: 07/15/17 20:48 Dose: 1 tab Cephalexin (Keflex) 500 mg PO QID [facility] Last Admin: 07/15/17 20:49 Dose: 500 mg Cetirizine HCl (Zyrtec) 10 mg PO DAILY PRN PRN Reason: Allergies Cholecalciferol (Vitamin D3) 2,000 units PO DAILY [facility] Coenzyme Q10 (Coenzyme Q10) 100 mg PO DAILY [facility] Fentanyl (Duragesic) 12 mcg TRDERM Q72H [facility] Last Admin: 07/15/17 20:47 Dose: 12 mcg Ferrous Sulfate (Ferrous Sulfate) 325 mg PO BIDMEALS [facility] Last Admin: 07/15/17 20:48 Dose: 325 mg Fluoxetine HCl (Prozac) 40 mg PO DAILY [facility] Hydroxyzine Pamoate (Vistaril) 50 mg PO Q6H PRN PRN Reason: Itching Lactulose (Cephulac) 20 gm PO BEDTIME [facility] Last Admin: 07/15/17 20:48 Dose: Not Given Non-Formulary Medication (Nf Drug) each PO BID PRN PRN Reason: Headache Nystatin (Nystop) 0 gm TOP BID [facility] Omeprazole (Omeprazole) 20 mg PO DAILY [facility] Oxycodone HCl (Oxycodone) 5 mg PO Q4H PRN PRN Reason: Pain Rivaroxaban (Xarelto) 10 mg PO DAILY [facility] Rosuvastatin Calcium (Crestor) 10 mg PO BEDTIME [facility] Last Admin: 07/15/17 20:50 Dose: 10 mg Admin: 07/15/17 20:48 Dose: 10 mg Senna/Docusate Sodium (Senna Plus) 2 tab PO BID PRN PRN Reason: Constipation Assessment/Plan Comment:: S/P left hip arthroplasty. Continue PT/OT. Continue Keflex.
[2017-07-16] MEDS ORDERED: Cetirizine 10 MG Tab PO PRN (08:00)
[2017-07-16] MEDS ORDERED: Nystatin Topical Powder 15 GM Bottle TOP SCH (08:00)
[2017-07-16] MEDS: Ferrous Sulfate 325 MG Tab PO SCH ×2 (08:09→17:50)
[2017-07-16] MEDS: Cephalexin 250 MG Cap PO SCH (08:10)
[2017-07-16] MEDS: Calcium Carbonate/Vitamin D3 1500 MG-400 Units Tab PO SCH ×2 (08:10→17:50)
[2017-07-16] MEDS: Magnesium Oxide 400 MG Tab PO SCH (08:11)
[2017-07-16] MEDS: Omeprazole 20 MG Cap.CR PO SCH (08:12)
[2017-07-16] MEDS: Cholecalciferol (Vitamin D3) 1,000 Unit Tab PO SCH (08:12)
[2017-07-16] MEDS: FLUoxetine 20 MG Cap PO SCH (08:13)
[2017-07-16] MEDS: Zinc (Zinc Gluconate) 50 MG Tab PO SCH ×2 (08:14→08:26)
[2017-07-16] MEDS: Rivaroxaban 10 MG Tab PO SCH (08:14)
[2017-07-16] MEDS: Acetaminophen 650 MG Tab.ER PO PRN (08:19)
[2017-07-16] MEDS: CEPHALEXIN 500 MG PO SCH ×3 (11:16→19:21)
[2017-07-16] MEDS ORDERED: Patient's Own Medication 1 Each TOP PRN (12:54)
[2017-07-16] MEDS ORDERED: [UNRECOGNIZED DRUG - OTHER] TOP PRN (12:59)
[2017-07-16] MEDS: traMADol 50 MG Tab PO PRN (15:00)
[2017-07-16] MEDS: Lactulose Soln 10 GM/15 ML 30 ML UD Cup PO SCH (19:20)
[2017-07-16] MEDS: ACETAMINOPHEN PO PRN (19:21)
[2017-07-16] MEDS: ASPIRIN PO PRN (19:21)
[2017-07-16] MEDS: CAFFEINE PO PRN (19:21)
[2017-07-16] MEDS: Rosuvastatin 10 MG Tab PO SCH (19:22)
[2017-07-16] MEDS: Melatonin 3 MG Tab PO SCH (19:26)
[2017-07-17] MEDS: traMADol 50 MG Tab PO PRN ×2 (03:56→18:11)
[2017-07-17] MEDS: Ferrous Sulfate 325 MG Tab PO SCH ×2 (08:02→17:20)
[2017-07-17] MEDS: Calcium Carbonate/Vitamin D3 1500 MG-400 Units Tab PO SCH ×2 (08:02→17:20)
[2017-07-17] MEDS: Omeprazole 20 MG Cap.CR PO SCH (08:03)
[2017-07-17] MEDS: Magnesium Oxide 400 MG Tab PO SCH (08:03)
[2017-07-17] MEDS: CEPHALEXIN 500 MG PO SCH ×4 (08:04→19:21)
[2017-07-17] MEDS: FLUoxetine 20 MG Cap PO SCH (08:04)
[2017-07-17] MEDS: Cholecalciferol (Vitamin D3) 1,000 Unit Tab PO SCH (08:05)
[2017-07-17] MEDS: Rivaroxaban 10 MG Tab PO SCH (08:05)
[2017-07-17] MEDS ORDERED: Lactulose Soln 10 GM/15 ML 30 ML UD Cup PO PRN (15:48)
[2017-07-17] MEDS: Melatonin 3 MG Tab PO SCH (19:20)
[2017-07-17] MEDS: Rosuvastatin 10 MG Tab PO SCH (19:20)
[2017-07-18] MEDS: Acetaminophen 650 MG Tab.ER PO PRN (02:28)
[2017-07-18] MEDS: Ferrous Sulfate 325 MG Tab PO SCH ×2 (07:17→17:09)
[2017-07-18] MEDS: Magnesium Oxide 400 MG Tab PO SCH (07:18)
[2017-07-18] MEDS: Calcium Carbonate/Vitamin D3 1500 MG-400 Units Tab PO SCH ×2 (07:18→17:09)
[2017-07-18] MEDS: Omeprazole 20 MG Cap.CR PO SCH (07:19)
[2017-07-18] MEDS: FLUoxetine 20 MG Cap PO SCH (07:20)
[2017-07-18] MEDS: CEPHALEXIN 500 MG PO SCH ×4 (07:25→19:12)
[2017-07-18] MEDS: Rivaroxaban 10 MG Tab PO SCH (07:26)
[2017-07-18] MEDS: Cholecalciferol (Vitamin D3) 1,000 Unit Tab PO SCH (07:26)
[2017-07-18] MEDS: CAFFEINE PO PRN (13:21)
[2017-07-18] MEDS: ASPIRIN PO PRN (13:21)
[2017-07-18] MEDS: ACETAMINOPHEN PO PRN (13:21)
[2017-07-18] MEDS: traMADol 50 MG Tab PO PRN (16:25)
[2017-07-18] MEDS: Rosuvastatin 10 MG Tab PO SCH (19:12)
[2017-07-18] MEDS: Melatonin 3 MG Tab PO SCH (19:12)
[2017-07-19] MEDS: Acetaminophen 650 MG Tab.ER PO PRN ×2 (01:22→20:24)
[2017-07-19] MEDS: Calcium Carbonate/Vitamin D3 1500 MG-400 Units Tab PO SCH ×2 (07:51→17:42)
[2017-07-19] MEDS: Magnesium Oxide 400 MG Tab PO SCH (07:51)
[2017-07-19] MEDS: Ferrous Sulfate 325 MG Tab PO SCH ×2 (07:51→17:41)
[2017-07-19] MEDS: Omeprazole 20 MG Cap.CR PO SCH (07:52)
[2017-07-19] MEDS: FLUoxetine 20 MG Cap PO SCH (07:52)
[2017-07-19] MEDS: Rivaroxaban 10 MG Tab PO SCH (07:53)
[2017-07-19] MEDS: Cholecalciferol (Vitamin D3) 1,000 Unit Tab PO SCH (07:53)
[2017-07-19] MEDS: CEPHALEXIN 500 MG PO SCH ×4 (07:53→20:24)
[2017-07-19] MEDS: traMADol 50 MG Tab PO PRN (15:15)
[2017-07-19] MEDS: Rosuvastatin 10 MG Tab PO SCH (20:23)
[2017-07-19] MEDS: Melatonin 3 MG Tab PO SCH (20:23)
[2017-07-20] MEDS: traMADol 50 MG Tab PO PRN ×3 (03:12→20:41)
[2017-07-20] MEDS: Acetaminophen 650 MG Tab.ER PO PRN ×2 (03:13→20:43)
[2017-07-20] MEDS: Ferrous Sulfate 325 MG Tab PO SCH ×2 (08:06→17:29)
[2017-07-20] MEDS: Calcium Carbonate/Vitamin D3 1500 MG-400 Units Tab PO SCH ×2 (08:06→17:29)
[2017-07-20] MEDS: FLUoxetine 20 MG Cap PO SCH (08:07)
[2017-07-20] MEDS: Magnesium Oxide 400 MG Tab PO SCH (08:07)
[2017-07-20] MEDS: Omeprazole 20 MG Cap.CR PO SCH (08:07)
[2017-07-20] MEDS: Cholecalciferol (Vitamin D3) 1,000 Unit Tab PO SCH (08:08)
[2017-07-20] MEDS: CEPHALEXIN 500 MG PO SCH ×4 (08:08→19:52)
[2017-07-20] MEDS: Rivaroxaban 10 MG Tab PO SCH (08:09)
[2017-07-20] MEDS: Rosuvastatin 10 MG Tab PO SCH (19:51)
[2017-07-20] MEDS: Melatonin 3 MG Tab PO SCH (19:52)
[2017-07-21] MEDS: Omeprazole 20 MG Cap.CR PO SCH (08:44)
[2017-07-21] MEDS: Cholecalciferol (Vitamin D3) 1,000 Unit Tab PO SCH (08:44)
[2017-07-21] MEDS: Magnesium Oxide 400 MG Tab PO SCH (08:44)
[2017-07-21] MEDS: Rivaroxaban 10 MG Tab PO SCH (08:44)
[2017-07-21] MEDS: CEPHALEXIN 500 MG PO SCH ×4 (08:44→19:30)
[2017-07-21] MEDS: FLUoxetine 20 MG Cap PO SCH (08:44)
[2017-07-21] MEDS: Calcium Carbonate/Vitamin D3 1500 MG-400 Units Tab PO SCH ×2 (08:44→18:10)
[2017-07-21] MEDS: Acetaminophen 650 MG Tab.ER PO PRN ×2 (08:45→19:32)
[2017-07-21] MEDS: Ferrous Sulfate 325 MG Tab PO SCH ×2 (08:45→18:10)
[2017-07-21] MEDS: Rosuvastatin 10 MG Tab PO SCH (19:29)
[2017-07-21] MEDS: traMADol 50 MG Tab PO PRN (19:35)
[2017-07-21] MEDS: Melatonin 3 MG Tab PO SCH (21:14)
[2017-07-22] MEDS: Ferrous Sulfate 325 MG Tab PO SCH ×2 (08:19→18:06)
[2017-07-22] MEDS: Omeprazole 20 MG Cap.CR PO SCH (08:20)
[2017-07-22] MEDS: Magnesium Oxide 400 MG Tab PO SCH (08:20)
[2017-07-22] MEDS: Calcium Carbonate/Vitamin D3 1500 MG-400 Units Tab PO SCH ×2 (08:20→18:06)
[2017-07-22] MEDS: FLUoxetine 20 MG Cap PO SCH (08:21)
[2017-07-22] MEDS: CEPHALEXIN 500 MG PO SCH ×4 (08:21→19:54)
[2017-07-22] MEDS: Cholecalciferol (Vitamin D3) 1,000 Unit Tab PO SCH (08:22)
[2017-07-22] MEDS: Rivaroxaban 10 MG Tab PO SCH (08:22)
[2017-07-22] MEDS: Acetaminophen 650 MG Tab.ER PO PRN ×2 (08:33→18:30)
[2017-07-22] MEDS: traMADol 50 MG Tab PO PRN (18:28)
[2017-07-22] MEDS: Melatonin 3 MG Tab PO SCH (19:54)
[2017-07-22] MEDS: Rosuvastatin 10 MG Tab PO SCH (19:55)
[2017-07-23] MEDS: traMADol 50 MG Tab PO PRN (01:13)
[2017-07-23] MEDS: Ferrous Sulfate 325 MG Tab PO SCH ×2 (08:20→17:52)
[2017-07-23] MEDS: Calcium Carbonate/Vitamin D3 1500 MG-400 Units Tab PO SCH ×2 (08:20→17:52)
[2017-07-23] MEDS: Magnesium Oxide 400 MG Tab PO SCH (08:21)
[2017-07-23] MEDS: Omeprazole 20 MG Cap.CR PO SCH (08:23)
[2017-07-23] MEDS: Rivaroxaban 10 MG Tab PO SCH (08:23)
[2017-07-23] MEDS: FLUoxetine 20 MG Cap PO SCH (08:23)
[2017-07-23] MEDS: CEPHALEXIN 500 MG PO SCH ×4 (08:24→19:17)
[2017-07-23] MEDS: Cholecalciferol (Vitamin D3) 1,000 Unit Tab PO SCH (08:25)
[2017-07-23] MEDS: Acetaminophen 650 MG Tab.ER PO PRN ×2 (08:28→23:07)
[2017-07-23] MEDS: CAFFEINE PO PRN (12:29)
[2017-07-23] MEDS: ACETAMINOPHEN PO PRN (12:29)
[2017-07-23] MEDS: ASPIRIN PO PRN (12:29)
[2017-07-23] MEDS: Rosuvastatin 10 MG Tab PO SCH (19:16)
[2017-07-23] MEDS: Melatonin 3 MG Tab PO SCH (19:17)
[2017-07-24] MEDS: traMADol 50 MG Tab PO PRN (01:41)
[2017-07-24] MEDS: Calcium Carbonate/Vitamin D3 1500 MG-400 Units Tab PO SCH ×2 (07:39→17:17)
[2017-07-24] MEDS: Ferrous Sulfate 325 MG Tab PO SCH ×2 (07:39→17:17)
[2017-07-24] MEDS: Magnesium Oxide 400 MG Tab PO SCH (07:40)
[2017-07-24] MEDS: Omeprazole 20 MG Cap.CR PO SCH (07:41)
[2017-07-24] MEDS: FLUoxetine 20 MG Cap PO SCH (07:41)
[2017-07-24] MEDS: CEPHALEXIN 500 MG PO SCH ×3 (07:42→15:38)
[2017-07-24] MEDS: Cholecalciferol (Vitamin D3) 1,000 Unit Tab PO SCH (07:42)
[2017-07-24] MEDS: Rivaroxaban 10 MG Tab PO SCH (07:43)
[2017-07-24] MEDS: Acetaminophen 650 MG Tab.ER PO PRN (07:44)
[2017-07-24] MEDS: CAFFEINE PO PRN (14:49)
[2017-07-24] MEDS: ASPIRIN PO PRN (14:49)
[2017-07-24] MEDS: ACETAMINOPHEN PO PRN (14:49)
[2017-07-24] MEDS: Rosuvastatin 10 MG Tab PO SCH (19:20)
[2017-07-24] MEDS: Melatonin 3 MG Tab PO SCH (19:20)
[2017-07-25] MEDS: ACETAMINOPHEN PO PRN (03:24)
[2017-07-25] MEDS: ASPIRIN PO PRN (03:24)
[2017-07-25] MEDS: CAFFEINE PO PRN (03:24)
[2017-07-25] MEDS: Ferrous Sulfate 325 MG Tab PO SCH ×2 (08:06→17:45)
[2017-07-25] MEDS: Calcium Carbonate/Vitamin D3 1500 MG-400 Units Tab PO SCH ×2 (08:07→17:45)
[2017-07-25] MEDS: Magnesium Oxide 400 MG Tab PO SCH (08:07)
[2017-07-25] MEDS: Omeprazole 20 MG Cap.CR PO SCH (08:08)
[2017-07-25] MEDS: Cholecalciferol (Vitamin D3) 1,000 Unit Tab PO SCH (08:09)
[2017-07-25] MEDS: FLUoxetine 20 MG Cap PO SCH (08:09)
[2017-07-25] MEDS: Rivaroxaban 10 MG Tab PO SCH (08:10)
[2017-07-25] MEDS: Acetaminophen 650 MG Tab.ER PO PRN (17:46)
[2017-07-25] MEDS: traMADol 50 MG Tab PO PRN (17:47)
[2017-07-25] MEDS: Melatonin 3 MG Tab PO SCH (20:05)
[2017-07-25] MEDS: Rosuvastatin 10 MG Tab PO SCH (20:05)
[2017-07-26] MEDS: CAFFEINE PO PRN ×2 (02:15→13:38)
[2017-07-26] MEDS: ASPIRIN PO PRN ×2 (02:15→13:38)
[2017-07-26] MEDS: ACETAMINOPHEN PO PRN ×2 (02:15→13:38)
[2017-07-26 07:48] LABS: CHLORIDE,CL 105 mmol/L (98-107); SODIUM,NA 140 mmol/L (136-145)
[2017-07-26] MEDS: Ferrous Sulfate 325 MG Tab PO SCH ×2 (08:47→17:35)
[2017-07-26] MEDS: Calcium Carbonate/Vitamin D3 1500 MG-400 Units Tab PO SCH ×2 (08:47→17:35)
[2017-07-26] MEDS: Omeprazole 20 MG Cap.CR PO SCH (08:48)
[2017-07-26] MEDS: Magnesium Oxide 400 MG Tab PO SCH (08:48)
[2017-07-26] MEDS: FLUoxetine 20 MG Cap PO SCH (08:50)
[2017-07-26] MEDS: Cholecalciferol (Vitamin D3) 1,000 Unit Tab PO SCH (08:50)
[2017-07-26] MEDS: Rivaroxaban 10 MG Tab PO SCH (08:51)
[2017-07-26] MEDS: Rosuvastatin 10 MG Tab PO SCH (21:00)
[2017-07-26] MEDS: Melatonin 3 MG Tab PO SCH (21:00)
[2017-07-27] MEDS: Calcium Carbonate/Vitamin D3 1500 MG-400 Units Tab PO SCH (07:54)
[2017-07-27] MEDS: Ferrous Sulfate 325 MG Tab PO SCH (07:54)
[2017-07-27] MEDS: Magnesium Oxide 400 MG Tab PO SCH (07:55)
[2017-07-27] MEDS: Omeprazole 20 MG Cap.CR PO SCH (07:55)
[2017-07-27] MEDS: Cholecalciferol (Vitamin D3) 1,000 Unit Tab PO SCH (07:56)
[2017-07-27] MEDS: FLUoxetine 20 MG Cap PO SCH (07:56)
[2017-07-27] MEDS: Rivaroxaban 10 MG Tab PO SCH (07:57)
--- NOTE | 2017-07-27 08:55 | PCM.DCSUM1 ---
Discharge Summary - Hospital Course HPI Initial Comments: See admission H&P Brief History: See admission H&P - Discharge Data Discharge Date: 07/27/17 Discharge Disposition: Home, Self-Care 01 Condition: Good - Discharge Diagnosis/Problem(s) (1) Closed left hip fracture SNOMED Code(s): 859372768 ICD Code: S72.002A - FRACTURE OF UNSP PART OF NECK OF LEFT FEMUR, INIT Status: Acute Priority: High Current Visit: No Onset Date: 06/16/17 Problem Details: Postoperative major trochanteric fracture after left hip TEP. Note subsequent transfer to [facility] in [place] with required subsequent wire fixation. Patient was transferred to our swing bed unit for physical therapy and occupational therapy, however did develop a postoperative infection. She was once again transferred to [facility] in [place] for further evaluation, treatment, and drainage of large amounts of fluid from her postoperative site. She was returned to our swing bed unit for continuation of physical therapy, occupational therapy, etc. The patient did continue previous Keflex therapy during subsequent swing bed care. She has responded extremely well to the above treatment with no evidence of recurrence of her previous infection. The patient did not wish to have home health. She will continue physical therapy and occupational therapy on an outpatient basis. The patient is no longer requiring narcotic pain medications for her pain control. Qualifiers: Encounter type: initial encounter Qualified Code(s): S72.002A - Fracture of unspecified part of neck of left femur, initial encounter for closed fracture (2) Anemia SNOMED Code(s): 021803003 ICD Code: D64.9 - ANEMIA, UNSPECIFIED Status: Acute Priority: High Current Visit: No Onset Date: ~06/16/17 Problem Details: Anemia is significantly improved since surgery with previous postoperative anemia and mild thrombocytopenia with history of severe postoperative bleeding in the past requiring blood transfusions. Patient currently on Xarelto postoperatively and does have a follow-up appointment with her orthopedic surgeon. Close follow-up by her regular providers as per discharge instructions. Qualifiers: Anemia type: other cause Other causes of anemia: other cause, not classified Qualified Code(s): D64.89 - Other specified anemias (3) Osteoarthritis SNOMED Code(s): 608747648 ICD Code: M19.90 - UNSPECIFIED OSTEOARTHRITIS, UNSPECIFIED SITE Status: Chronic Priority: Medium Current Visit: No Problem Details: Otherwise stable by history Qualifiers: Osteoarthritis location: multiple joints Osteoarthritis type: primary Qualified Code(s): M15.0 - Primary generalized (osteo)arthritis (4) Fibromyalgia SNOMED Code(s): 548098158 ICD Code: M79.7 - FIBROMYALGIA Status: Chronic Priority: Medium Current Visit: Yes Problem Details: Stable by history (5) Hypoalbuminemia SNOMED Code(s): 227788525 ICD Code: E88.09 - OTH DISORDERS OF PLASMA-PROTEIN METABOLISM, NEC Status: Acute Priority: Medium Current Visit: No Onset Date: 06/16/17 Problem Details: Mild hypoalbuminemia. Continue high-protein Glucerna supplements snacks (6) Hyperlipidemia SNOMED Code(s): 43169888 ICD Code: E78.5 - HYPERLIPIDEMIA, UNSPECIFIED Status: Chronic Priority: Medium Current Visit: No Problem Details: Currently under therapy with repeat lipid panel by her regular provider after discharge recommended Qualifiers: Hyperlipidemia type: unspecified Qualified Code(s): E78.5 - Hyperlipidemia , unspecified (7) Hypertension SNOMED Code(s): 26352312 ICD Code: I10 - ESSENTIAL (PRIMARY) HYPERTENSION Status: Chronic Priority : Medium Current Visit: No Problem Details: Stable during swing bed care. Continue to observe closely by her regular providers Qualifiers: Hypertension type: essential hypertension Qualified Code(s): I10 - Essential (primary) hypertension (8) Allergic rhinitis SNOMED Code(s): 64002831 ICD Code: J30.9 - ALLERGIC RHINITIS, UNSPECIFIED Status: Chronic Priority : Medium Current Visit: No Problem Details: Stable by history during swing bed care Qualifiers: Chronicity: chronic Allergic rhinitis trigger: pollen Allergic rhinitis seasonality: seasonal Qualified Code(s): J30.1 - Allergic rhinitis due to pollen (9) LFT elevation SNOMED Code(s): 216639365 ICD Code: R79.89 - OTHER SPECIFIED ABNORMAL FINDINGS OF BLOOD CHEMISTRY Status: Chronic Priority: Medium Current Visit: No Problem Details: Mild LFTs elevation possibly postoperative. Observe for now (10) Mixed anxiety depressive disorder SNOMED Code(s): 239384455 ICD Code: F41.8 - OTHER SPECIFIED ANXIETY DISORDERS Status: Chronic Priority: Medium Current Visit: No Problem Details: Continue current medical therapy. No significant anxiety or depression at this time - Patient Summary/Data Operative Procedure(s) Performed: None Complications: Post operative infection as above Consults: Consultations 07/15/17 19:47 PT Evaluation and Treatment [CONS] Routine 07/15/17 19:48 OT Evaluation and Treatment [CONS] Routine Labs Pending at D/C: None Recommended Follow-up Testing/Procedures: As per discharge instructions Planned Operative Procedure(s) after DC: None Hospital Course: Patient was readmitted to swing bed care secondary to postoperative infection as above. Physical therapy and occupational therapy did progress well and will be continued on an outpatient basis. Her anemia also did improve with current iron supplementation. No evidence of subsequent postoperative bleed despite Xarelto therapy. The patient did not require any narcotic medications at discharge for pain control - Patient Instructions Diet: Heart Healthy Diet Diet, Other: High-protein Glucerna supplements twice a day as snacks Activity: As Tolerated (And directed by physical therapy and occupational therapy) Driving: Do Not Drive Showering/Bathing: May Shower Notify Provider of: Fever, Increased Pain, Swelling and Redness, Nausea and/or Vomiting Other/Special Instructions: 1. Followup with your regular provider in 10-14 days as directed with recommended repeat CBC, comprehensive metabolic panel, CRP , magnesium level, ferritin level, transferrin level, and TIBC panel. 2. Otherwise follow-up with your orthopedic surgeon at [facility] as already scheduled. 3. BenGay or equivalent, heating pad, and/or ice packs as directed. - Discharge Plan Home Medications: Home Meds Acetaminophen [Tylenol Arthritis] 650 mg PO Q8HR PRN 06/27/17 [History] Calcium Carbonate/Vitamin D3 [Calcium 500 + Vit D 400] 1 tab PO BID 06/27/17 [ History] Cetirizine HCl [Zyrtec] 10 mg PO DAILY PRN 06/27/17 [History] FLUoxetine [PROzac] 40 mg PO DAILY 06/27/17 [History] Ferrous Gluconate 324 mg PO BID 06/27/17 [History] Lactulose 30 ml PO BEDTIME 06/27/17 [History] Non-Formulary Medication [NF Drug] 3 tab PO BID PRN 06/27/17 [History] Nystatin 1 applic TP BID 06/27/17 [History] Omeprazole 20 mg PO DAILY 06/27/17 [History] Rivaroxaban [Xarelto] 10 mg PO DAILY 06/27/17 [History] Rosuvastatin Calcium 5 mg PO DAILY 06/27/17 [History] Sennosides/Docusate Sodium [Senna-S] 2 tab PO BID PRN 06/27/17 [History] hydrOXYzine Pamoate [Hydroxyzine Pamoate] 50 mg PO Q6HR PRN 06/27/17 [History] Cholecalciferol (Vitamin D3) [Vitamin D3] 2,000 units PO DAILY tablet 07/27/17 [Rx] Magnesium Oxide 400 mg PO DAILY tablet 07/27/17 [Rx] Melatonin 3 mg PO BEDTIME tablet 07/27/17 [Rx] Patient's Own Medication [Ptom] 1 each TOP ASDIRECTED PRN each 07/27/17 [Rx] Ubidecarenone [Coenzyme Q10] 100 mg PO DAILY cap 07/27/17 [Rx] - Discharge Summary/Plan Comment DC Time >30 min.: Yes (Coordination of care) Discharge Summary/Plan Comment: As above. Extensive precautions were given to the patient, who is in agreement with the treatment plan. See Patient Instructions for further treatment and plan. - General Info Date of Service: 07/27/17 Admission Dx/Problem (Free Text: Admission Diagnosis/Problem Admission Diagnosis/Problem Hip fracture requiring operative repair Functional Status: Reports: Pain Controlled (No extra pain medications required at this time), Tolerating Diet, Ambulating (With walker), Urinating. Denies: New Symptoms, Incentive Spirometry Numeric/FACES Score: 0 - Review of Systems General: Reports: No Symptoms HEENT: Reports: No Symptoms. Denies: Ear Pain, Eye Pain, Headaches, Sore Throat , Visual Changes Pulmonary: Reports: No Symptoms. Denies: Shortness of Breath, Pleuritic Chest Pain, Cough Cardiovascular: Reports: No Symptoms. Denies: Chest Pain, Palpitations, Dyspnea on Exertion, Orthopnea, PND, Edema, Lightheadedness Gastrointestinal: Reports: No Symptoms. Denies: Abdominal Pain, Constipation, Decreased Appetite, Diarrhea, Difficulty Swallowing, Flatus, Hematochezia, Melena, Nausea, Vomiting Genitourinary: Reports: Incontinence (Stable chronic). Denies: Dysuria, Frequency, Burning, Pain, Urgency, Hematuria, Retention, Flank Pain Musculoskeletal: Reports: Joint Pain (Improved/resolved left hip pain postsurgical). Denies: Neck Pain, Shoulder Pain, Arm Pain, Back Pain, Leg Pain , Joint Swelling Skin: Reports: No Symptoms. Denies: Diaphoresis, Bruising Neurological: Reports: Difficulty Walking (Still using walker). Denies: Confusion, Dizziness, Headache, Numbness, Paresthesia, Weakness Psychiatric: Reports: No Symptoms. Denies: Confusion, Depression, Anxiety, Agitation, Hallucinations - Patient Data Vitals - Most Recent: Last Vital Signs Temp 36.6 C 07/26/17 08:00 Pulse 62 07/26/17 08:00 Resp 16 07/26/17 08:00 BP 150/80 H 07/26/17 08:00 Pulse Ox 95 07/26/17 19:00 Vital Signs (72 hours) 07/24/17 07/24/17 07/25/17 19:00 19:49 08:00 Temperature [ 36.6 C 36.6 C Temporal] Pulse, 79 74 Peripheral [ Left Pulse Oximetry] Respiratory 17 18 Rate Blood Pressure 126/71 158/77 H [Right Upper Arm] O2 Sat by Pulse 94 L 94 L 96 Oximetry 07/25/17 07/25/17 07/26/17 19:00 20:00 08:00 Temperature [ 36.7 C 36.6 C Temporal] Pulse, 72 62 Peripheral [ Left Pulse Oximetry] Respiratory 17 16 Rate Blood Pressure 154/76 H 150/80 H [Right Upper Arm] O2 Sat by Pulse 97 94 L 95 Oximetry 07/26/17 19:00 Temperature [ Temporal] Pulse, Peripheral [ Left Pulse Oximetry] Respiratory Rate Blood Pressure [Right Upper Arm] O2 Sat by Pulse 95 Oximetry Weight - Most Recent: 78.334 kg I&O - Last 24 hours: Intake & Output 07/26/17 07/27/17 07/27/17 22:59 06:59 14:59 Intake Total 100 Balance 100 Imaging Impressions - Last 24 hrs: X-rays of the pelvis, 2 views, shows evidence of stable position and alignment of bilateral total hip arthroplasties with excellent new bone formation noted on the left side after recent wire fixation of recurrent proximal femoral fracture. Official x-ray report reviewed Lab Results - Last 24 hrs: Laboratory Tests 07/26/17 07/26/17 Range/Units 07:20 07:20 WBC 5.9 (4.0-10.2) K/uL RBC 3.73 L (3.77-5.09) M/uL Hgb 11.0 L D (11.7-15.5) g/dL Hct 34.6 (34.0-46.0) % MCV 92.8 (84.0-98.0) fL MCH 29.5 (28.2-33.3) pg MCHC 31.8 (31.7-36.0) g/dL RDW 14.9 H (11.2-14.1) % Plt Count 223 D (150-350) K/uL Neut % (Auto) 56.7 (45.0-80.0) % Lymph % (Auto) 25.5 (10.0-50.0) % Terry % (Auto) 11.7 (2.0-14.0) % Eos % (Auto) 5.4 H (0.0-5.0) % Baso % (Auto) 0.7 (0.0-2.0) % Neut # (Auto) 3.36 (1.40-7.00) K/uL Lymph # (Auto) 1.51 (0.50-3.50) K/uL Terry # (Auto) 0.69 (0.00-1.00) K/uL Eos # (Auto) 0.32 (0.00-0.50) K/uL Baso # (Auto) 0.04 (0.00-0.20) K/uL Sodium 140 (136-145) mmol/L Potassium 3.5 (3.5-5.1) mmol/L Chloride 105 (98-107) mmol/L Carbon Dioxide 26.5 (21.0-32.0) mmol/L BUN 8 (7-18) mg/dL Creatinine 0.79 (0.51-1.17) mg/dL Est Cr Clr Drug Dosing 60.93 mL/min Estimated GFR (MDRD) > 60 mL/min Glucose 105 (74-106) mg/dL Calcium 9.4 (8.5-10.1) mg/dL Total Bilirubin 0.5 (0.2-1.0) mg/dL AST 23 (15-37) U/L ALT 24 (12-78) U/L Alkaline Phosphatase 191 H (46-116) IU/L C-Reactive Protein 1.2 H (<=0.9) mg/dL Total Protein 6.4 (6.4-8.2) g/dL Albumin 3.3 L (3.4-5.0) g/dL KATINA Results - Last 24 hrs: None Med Orders - Current: Current Medications Acetaminophen (Tylenol Arthritis Pain) 650 mg PO Q8HR PRN PRN Reason: Pain (mild 1-3) Last Admin: 07/25/17 17:46 Dose: 650 mg Calcium Carbonate (Caltrate 600+D 1500 Mg-400 Units) 1 tab PO BID [facility] Last Admin: 07/27/17 07:54 Dose: 1 tab Cetirizine HCl (Zyrtec) 10 mg PO DAILY PRN PRN Reason: Allergies Cholecalciferol (Vitamin D3) 2,000 units PO DAILY [facility] Last Admin: 07/27/17 07:56 Dose: 2,000 units Coenzyme Q10 (Coenzyme Q10) 100 mg PO DAILY [facility] Last Admin: 07/27/17 07:54 Dose: 100 mg Ferrous Sulfate (Ferrous Sulfate) 325 mg PO BIDMEALS [facility] Last Admin: 07/27/17 07:54 Dose: 325 mg Fluoxetine HCl (Prozac) 40 mg PO DAILY [facility] Last Admin: 07/27/17 07:56 Dose: 40 mg Hydroxyzine Pamoate (Vistaril) 50 mg PO Q6H PRN PRN Reason: Itching Lactulose (Cephulac) 20 gm PO BEDTIME PRN PRN Reason: Constipation Magnesium Oxide (Magnesium Oxide) 400 mg PO DAILY [facility] Last Admin: 07/27/17 07:55 Dose: 400 mg Melatonin (Melatonin) 3 mg PO BEDTIME [facility] Last Admin: 07/26/17 21:00 Dose: Not Given Omeprazole (Omeprazole) 20 mg PO DAILY [facility] Last Admin: 07/27/17 07:55 Dose: 20 mg Oxycodone HCl (Oxycodone) 5 mg PO Q4H PRN PRN Reason: Pain Excedrin Migraine Extra Strength Tabs Own Med 0 each PO BID PRN PRN Reason: Headache Last Admin: 07/26/17 13:38 Dose: 1 each Aspercreme Oder Free Therapry*Pt Own Med * 0 each TOP ASDIRECTED PRN PRN Reason: Pain Rivaroxaban (Xarelto) 10 mg PO DAILY [facility] Last Admin: 07/27/17 07:57 Dose: 10 mg Rosuvastatin Calcium (Crestor) 10 mg PO BEDTIME [facility] Last Admin: 07/26/17 21:00 Dose: 10 mg Senna/Docusate Sodium (Senna Plus) 2 tab PO BID PRN PRN Reason: Constipation Tramadol HCl (Ultram) 100 mg PO Q6H PRN PRN Reason: Pain (severe 7-10) Last Admin: 07/25/17 17:47 Dose: 100 mg Discontinued Medications Cephalexin (Keflex) 500 mg PO QID [facility] Last Admin: 07/16/17 08:10 Dose: 500 mg Fentanyl (Duragesic) 12 mcg TRDERM Q72H [facility] Last Admin: 07/15/17 20:47 Dose: 12 mcg Lactulose (Cephulac) 20 gm PO BEDTIME [facility] Last Admin: 07/16/17 19:20 Dose: Not Given Nystatin (Nystop) 0 gm TOP BID [facility] Last Admin: 07/16/17 08:15 Dose: Not Given Cephalexin 500mg (Caps Own Med) 0 each PO QID [facility] Stop: 07/24/17 16:01 Last Admin: 07/24/17 15:38 Dose: 1 each Patient Own Medication (Ptom) 1 each TOP ASDIRECTED PRN PRN Reason: Pain Zinc Gluconate (Zinc) 50 mg PO DAILY [facility] Last Admin: 07/16/17 08:26 Dose: Not Given - Exam Quality Assessment: Reports: DVT Prophylaxis. Denies: Supplemental Oxygen, Central Line/PICC, Urine Catheter, Skin Breakdown, Restraints General: Reports: Alert, Oriented, Cooperative, No Acute Distress HEENT: Reports: Pupils Equal, Pupils Reactive, EOMI, Mucous Membr. Moist/[place] Neck: Reports: Supple, No JVD, No Thyromegaly. Denies: Lymphadenopathy Lungs: Reports: Clear to Auscultation, Normal Respiratory Effort. Denies: Rub Cardiovascular: Reports: Regular Rate, Regular Rhythm, No Murmurs. Denies: Gallops, Rubs GI/Abdominal Exam: Normal Bowel Sounds, Soft, Non-Tender, No Organomegaly, No Distention, No Abnormal Bruit, No Mass, Pelvis Stable, Other (Obese) (Female) Exam: Deferred Rectal (Female) Exam: Deferred Back Exam: Reports: Normal Inspection, Full Range of Motion. Denies: CVA Tenderness (L), CVA Tenderness (R), Muscle Spasm Extremities: Non-Tender, No Pedal Edema, Normal Capillary Refill, Limited Range of Motion (Somewhat decreased range of motion of the left hip secondary to recent fracture however improved with physical therapy), Other (Surgical site over the left hip shows no evidence of swelling, local warming, infection, etc.) . No: Puja's Sign, Increased Warmth Skin: Reports: Warm, Dry, Intact. Denies: Rash Wound/Incisions: Reports: Healing Well (Completely healed surgical site of the left femoral region as above) Neurological: Reports: No New Focal Deficit, Other (The patient still requiring walker however ambulating well) Psy/Mental Status: Reports: Alert, Normal Affect, Normal Mood *Q Meaningful Use (DIS) - VTE *Q VTE Criteria *Q: - Stroke *Q Stroke Criteria *Q: - AMI *Q AMI Criteria *Q:
[2017-07-27 10:20] VITALS: BP 160/88
== END 2017-07-27 11:05 | disposition home or self-care (01) | DRG 560 ==
LOC: LL.SWG 18:26
PROVIDERS: ADMIT Emergency Medicine; ATTEND Family Medicine
DX: Z47.1 Aftercare following joint replacement surgery (principal); T84.52XA Infection and inflammatory reaction due to internal left hip prosthesis, initial encounter; Z96.642 Presence of left artificial hip joint; Z88.6 Allergy status to analgesic agent; Z88.8 Allergy status to other drugs, medicaments and biological substances; Z88.1 Allergy status to other antibiotic agents; M15.0 Primary generalized (osteo)arthritis; D64.89 Other specified anemias; E78.5 Hyperlipidemia, unspecified; E88.09 Other disorders of plasma-protein metabolism, not elsewhere classified; I10 Essential (primary) hypertension; J30.9 Allergic rhinitis, unspecified; R79.89 Other specified abnormal findings of blood chemistry; F41.8 Other specified anxiety disorders; G89.29 Other chronic pain; Z87.891 Personal history of nicotine dependence
CPT/HCPCS: 36415; 72170; 80053; 85025; 86140; 97110-GO; 97110-GP; 97116-GP; 97161-GP; 97165-GO; 97530-GO; A9270-GY